=== PATIENT | male | born 1950 | race Caucasian/White ===

== ENCOUNTER 2017-08-24 14:22 | Emergency (ER) | payer MEDICARE, OTHER ==
[~2017-08-24] VITALS: Ht 188 cm; Wt 97.7 kg
[~2017-08-24 14:22] MED LIST: AMBIEN10 MG PO; ASA81 MG; BENTYL20 MG PO; BROMPHED; DIAZEPAM10 MG PO; FLOMAX0.4 MG PO; HYDROCODONE; KLONOPIN2 MG PO; LEVAQUIN; LEVOTHROID100 MC1; LEXAPRO20 MG PO; LIPITOR20 MG PO; LOMOTIL TABLET1 EACH; METFORMIN HCL500 MG PO; MYRBETRIQ25 MG PO; PANTOPRAZOLE SO40 MG PO; PLAVIX75 MG PO; SEROQUEL XR300 MG PO; TRIAZOLAM0.25 MG PO; ULTRAM50 MG PO; XANAX; XANAX2 MG PO; Z.0.AMBIEN10 MG; Z.0.BACTRIM DS TAB1; Z.0.CYMBALTA60 MG; Z.0.FLOMAX0.4 MG; Z.0.GLUCOPHAGE1000 M; Z.0.VYTORIN 10-401 E; [UNRECOGNIZED DRUG - OTHER]
[2017-08-24] MEDS ORDERED: KETOROLAC TROMETHAMINE 30 MG/ML VIAL IV STA (16:28)
[2017-08-24] MEDS ORDERED: TETANUS/DIPHTHERIA TOX ADULT 0.5 ML SYR IM ONE (16:45)
[2017-08-24] MEDS ORDERED: HYDROCODONE/APAP 5MG-325MG TAB PO ONE (17:45)
[2017-08-24 19:41] VITALS: BP 136/72
== END 2017-08-24 17:25 | disposition home or self-care (01) ==
LOC: FSED 14:22
DX: S00.03XA Contusion of scalp, initial encounter (principal); S50.811A Abrasion of right forearm, initial encounter; S01.111A Laceration without foreign body of right eyelid and periocular area, initial encounter; W01.0XXA Fall on same level from slipping, tripping and stumbling without subsequent striking against object, initial encounter; S60.511A Abrasion of right hand, initial encounter; Z23 Encounter for immunization
CPT/HCPCS: 80048; 82553; 84484; 85025; 90471; 90714; 99284

== ENCOUNTER → 2018-04-18 | Emergency (ER) | payer MEDICARE, OTHER ==
[~2018-04-18] VITALS: Ht 188 cm; Wt 90.7 kg
[~2018-04-18] MED LIST changes: +MORPHINE SULFATE 2 MG/ML SYR IV STA; +ONDANSETRON HCL INJ 2 MG/ML VIAL IV STA; +SODIUM CHLORIDE 0.9% 1000ML 1,000 ML IV ONE
[2018-04-18 16:01] LABS: BASOPHILS % 0.5 % (0.0-1.0); EOSINOPHILS % 0.3 % (0.0-6.0); HEMATOCRIT 36.4 % (38.2-49.6); HEMOGLOBIN 11.5 g/dL (14.0-18.0); LYMPHOCYTES % 16.8 % (18.0-39.1); MEAN CORPUSCULAR HEMOGLOBIN 27.8 pg (28-32); MEAN CORPUSCULAR HGB CONC 31.6 g/dL (31-35); MEAN CORPUSCULAR VOLUME 88.1 fL (81-99); MONOCYTES # (AUTO) 0.3 (0.2-0.8); MONOCYTES % 4.3 % (4.4-11.3); NEUTROPHILS # (AUTO) 4.5 (2.1-6.9); NEUTROPHILS % 77.8 % (38.7-80.0); PLATELET COUNT 193 x10e3/uL (140-360); RED BLOOD COUNT 4.13 x10e6/uL (4.3-5.7); RED CELL DISTRIBUTION WIDTH 14.4 % (11.7-14.4)
[2018-04-18 16:04] LABS: INR 0.94; PROTHROMBIN TIME 13.4 seconds (11.9-14.5)
[2018-04-18 16:05] LABS: PARTIAL THROMBOPLASTIN TIME 29.1 seconds (23.8-35.5)
[2018-04-18 16:14] LABS: ALBUMIN 4.4 g/dL (3.5-5.0); ANION GAP 17.2 mmol/L (8-16); CREATININE, SERUM 1.54 mg/dL (0.72-1.25); MAGNESIUM 1.7 MG/DL (1.3-2.1); POTASSIUM 4.2 mmol/L (3.5-5.1)
[2018-04-18 16:22] LABS: CREATINE KINASE MB 6.5 ng/mL (0-5.0)
--- NOTE | 2018-04-18 16:30 | Diagnostic Imaging Report ---
Examination: Single AP view of the chest. COMPARISON: None. INDICATION: Abdominal pain DISCUSSION: Lines/tubes: None. Lungs: The lungs are well inflated and clear. No pneumonia or pulmonary edema. Pleura: No pleural effusion or pneumothorax. Heart and mediastinum: The heart and the mediastinum are unremarkable. Bones and soft tissues: No acute bony abnormalities. IMPRESSION: 1. No acute cardiopulmonary abnormalities. Signed by: Dr. Enzo Ford M.D. on 04/18/2018 4:27 PM
[2018-04-18 16:35] LABS: CLARITY,URINE SL CLOUDY (CLEAR); COLOR,URINE YELLOW (YELLOW)
[2018-04-18 16:36] LABS: BILIRUBIN,URINE NEGATIVE (NEGATIVE); KETONES,URINE TRACE (NEGATIVE); LEUKOCYTE ESTERASE ,URINE NEGATIVE (NEGATIVE); NITRITE,URINE NEGATIVE (NEGATIVE); PROTEIN,URINE DIPSTICK 2+ (NEGATIVE); URINE UROBILINOGEN 0.2 mg/dL (0.2 - 1)
[2018-04-18 16:47] LABS: AMORPHOUS SEDIMENT,URINE MANY (FEW); BACTERIA,URINE MODERATE /HPF
--- NOTE | 2018-04-18 18:24 | Diagnostic Imaging Report ---
Examination: CT head without contrast Clinical Indication: Weakness. Nausea. Vomiting. Technique: Transaxial noncontrast images from the skull base through the vertex were obtained. Sagittal and coronal reformatted images were done. Dose modulation, iterative reconstruction, and/or weight based adjustment of the mA/kV was utilized to reduce the radiation dose to as low as reasonably achievable. Comparison: The images of the prior brain MRI performed October 18, 2013 are inaccessible at this time. Findings: Scalp: No abnormalities. Bones: Intact. No fractures. No blastic or lytic lesions. Brain sulci: Mild volume loss for patient's age. Ventricles: No hydrocephalus. Extra-axial space: No abnormalities. Parenchyma: There are mild confluent areas of low-attenuation within subcortical and periventricular white matter, nonspecific, but could represent microvascular ischemic disease. No masses, hemorrhage, or acute or chronic cortical based vascular insults. Suprasellar region: No abnormalities. Craniocervical junction: The foramen magnum is patent. No Chiari one malformation. Incidental findings: Atherosclerotic calcification of the supraclinoid internal carotid arteries. Impression: 1. No acute intracranial finding. 2. Mild chronic microvascular ischemic change and volume loss. Signed by: Dr. Lindsay Smalls M.D. on 04/18/2018 6:21 PM
--- NOTE | 2018-04-18 18:40 | Diagnostic Imaging Report ---
EXAMINATION: CT of the abdomen and pelvis without contrast. TECHNIQUE: Spiral CT images of the abdomen and pelvis were performed from the lung bases to the lesser trochanters. No intravenous contrast was given per renal stone protocol. Coronal and sagittal reformatted images were obtained. COMPARISON: CT abdomen and pelvis without contrast 12/23/2009 CLINICAL HISTORY:Abdominal pain DISCUSSION: ABSENCE OF INTRAVENOUS CONTRAST DECREASES SENSITIVITY FOR DETECTION OF FOCAL LESIONS AND VASCULAR PATHOLOGY. ABDOMEN/PELVIS: LOWER THORAX: Multiple linear opacities in the left lower lobe consistent with scarring. Atelectatic changes in the posterior left lower lobe. No consolidation. HEPATOBILIARY: No focal hepatic lesions. No intra or extrahepatic biliary ductal dilation. GALLBLADDER: No radio-opaque stones or sludge. No wall thickening. SPLEEN: No splenomegaly. PANCREAS: No focal masses or ductal dilatation. ADRENALS: No adrenal nodules. KIDNEYS/URETERS: 9 mm nonobstructing calculus in the left inferior pole (series 3, image 41). No other renal or any ureteral calculi, hydronephrosis or obstruction. No renal contour abnormalities. Mild nonspecific bilateral perinephric stranding. PELVIC ORGANS/BLADDER: Bladder is unremarkable. No wall thickening or focal lesions. PERITONEUM/RETROPERITONEUM: No free air or fluid. LYMPH NODES: No intra-abdominal,retroperitoneal, pelvic or inguinal lymphadenopathy. VESSELS: Mild atherosclerotic calcification of the distal abdominal aorta and proximal iliac vessels GI TRACT: No bowel dilation or evidence of obstruction. Moderate amount of retained stool predominantly in the ascending, transverse and sigmoid colon,, the latter appears hardened. No pericolonic inflammatory changes. BONES AND SOFT TISSUES: No aggressive lytic lesions. Degenerative disc changes in the lower thoracic and lumbosacral spine IMPRESSION: 1. 9 mm nonobstructing calculus in the left inferior pole. No other renal or ureteral calculi, hydronephrosis or obstruction. 2. Left lower lobe scarring and atelectatic changes. No consolidation. 3. Moderate amount of retained stool in the colon suggesting constipation. No bowel dilation or obstruction. Signed by: Dr. Porfirio Guevara M.D. on 04/18/2018 6:36 PM
[2018-04-18 19:33] VITALS: BP 185/78
== END | disposition home or self-care (01) ==
LOC: ER 14:59
DX: R10.31 Right lower quadrant pain (principal); R10.32 Left lower quadrant pain; K59.00 Constipation, unspecified; I10 Essential (primary) hypertension; E11.9 Type 2 diabetes mellitus without complications; E78.5 Hyperlipidemia, unspecified; F41.9 Anxiety disorder, unspecified
CPT/HCPCS: 36415; 70450; 71045; 74176; 80053; 81001; 82150; 82550; 82553; 83690; 83735; 84484; 85025; 85610; 85730; 93005; 99284; J2270; J2405; J7030

== ENCOUNTER → 2018-12-12 | Outpatient (CLI) | payer MEDICARE ==
[~2018-12-12] MED LIST changes: -MORPHINE SULFATE 2 MG/ML SYR IV STA; -ONDANSETRON HCL INJ 2 MG/ML VIAL IV STA; -SODIUM CHLORIDE 0.9% 1000ML 1,000 ML IV ONE
--- NOTE | 2018-12-12 12:22 | Diagnostic Imaging Report ---
MRI of the right foot without contrast. History: Pain and swelling. Ulcer at the bottom of the foot. Redness.. Prior amputation Technique: Multiplanar multisequence MRI of the foot without contrast Comparison: MRI March 13, 2008. MRI January 24, 2016 Findings: Abnormal skin ulceration, skin thickening and soft tissue edema at the plantar aspect of the foot at the level of the distal first/second metatarsal stump. This is best seen on sagittal image 11 through 16. No underlying well-formed drainable fluid collection/abscess is seen. No focal bone marrow edema or cortical destruction is seen to suggest osteomyelitis. The findings are most likely due to cellulitis. Scattered degenerative changes are seen with regions of bone marrow edema most pronounced in the cuboid bone likely stress related. No acute fracture or dislocation. Postsurgical change consistent with prior amputation of the first through fifth toes at the level of the mid/distal metatarsals. No ligamentous or tendon tear is seen. The visualized neurovascular bundles are intact. Diffuse muscle atrophy. Impression: Abnormal skin ulceration, skin thickening and soft tissue edema at the plantar aspect of the foot at the level of the distal first/second metatarsal stump. No underlying well-formed drainable fluid collection/abscess is seen. No focal bone marrow edema or cortical destruction is seen to suggest osteomyelitis. The findings are most likely due to cellulitis. Signed by: Dr. Musa Galdamez M.D. on 12/12/2018 12:18 PM
== END ==
LOC: MRI 10:40
PROVIDERS: ATTEND Podiatrist Foot & Ankle Surgery
DX: M86.071 Acute hematogenous osteomyelitis, right ankle and foot (principal); M25.471 Effusion, right ankle

== ENCOUNTER 2019-02-13 07:26 | Emergency (ER) | payer MEDICARE, OTHER ==
[~2019-02-13] VITALS: Ht 188 cm; Wt 90.7 kg
--- OUTSIDE RECORDS SUMMARY | 2019-02-13 07:31 | XMS REPORT | Continuity of Care Document ---
Author Author [email or web address] Organization [email or web address] Address Unknown Phone Unavailable Care Team Providers Care Accounting Associate Name Role Phone [employer] Information [employer] Unavailable Unavailable Problems Problem Status Onset Date Classification Date Reported Comments Source Venous insufficiency Active Problem 09/03/2017 Danya Hall Shortness of breath Active Problem 09/03/2017 Danya Hall Leg swelling Active Problem 09/03/2017 Danya Hall Atherosclerosis of [place] coronary artery of [place] heart with angina pectoris Active Problem 09/03/2017 Danya Hall Atherosclerosis of [place] arteries of left leg with ulceration of other part of foot Active Problem 09/03/2017 Danya Hall Varicose veins of bilateral lower extremities with other complications Active Problem 09/03/2017 Danay Hall Atherosclerosis of [place] artery of both lower extremities with intermittent claudication Active Problem 09/03/2017 Danya Hall Abnormal electrocardiogram Active Problem 09/03/2017 Danya Hall Stented coronary artery Active Problem 09/03/2017 Danya Hall Atherosclerosis of [place] arteries of right leg with ulceration of other part of foot Active Problem 09/03/2017 Danya Hall Hypercholesteremia Active Problem 09/03/2017 Danya Hall PAD Active Problem 09/03/2017 Danya Hall Generalized OA Active Problem 09/03/2017 Danya Hall Varicose veins of leg with complications Active Problem 09/03/2017 Danya Hall Type 2 diabetes mellitus with complication Active Problem 09/03/2017 Danya Hall CAD Active Problem 09/03/2017 Danya Hall Venous insufficiency Active Problem 05/16/2014 Danya Hall Diabetes mellitus with complication Active Problem 05/16/2014 Danya Hall Type II diabetes mellitus with neurological manifestations Active Problem 05/16/2014 Danya Hall Generalized osteoarthrosis Active Problem 05/16/2014 Danya Hall Chest Pain Active Problem 05/16/2014 Danya Hall Shortness of breath Active Problem 05/16/2014 Danya Hall CAD Active Problem 05/16/2014 Danya Hall Hypercholesterolemia Active Problem 05/16/2014 Danya Hall Tricuspid valve disorders, specified as nonrheumatic Active Problem 05/16/2014 Danya Hall Pre-operative cardiac clearance Active Problem 05/16/2014 Danya Hall Leg swelling Active Problem 05/16/2014 Danya Hall Hypercholesteremia Active Problem 03/21/2016 Danya Hall Medications Medication Details Route Status Patient Instructions Ordering Provider Order Date Source Triazolam 1 tablet at bedtime as needed Orally Active 0.25 MG Orally Once a day Isabel Hall Tamsulosin HCl Unknown Orally Active 0.4 MG Orally Riteshchio [facility] Lipitor 1 tablet Orally Active 20 MG Orally Once a day Riteshchio Hall Metformin HCl 1 tablet with meals Orally Active 500 MG Orally Twice a day Isabel Hall Diazepam 1 tablet as needed Orally Active 10 MG Orally Twice a day Rites[facility]chio [facility] Protonix 1 tablet Orally Active 40 MG Orally Once a day Riteshchio Hall Clopidogrel Bisulfate 1 tablet Orally Active 75 mg Orally Once a day Riteshchio Hall Myrbetriq 1 tablet Orally Active 50 MG Orally Once a day Riteshchio Hall Seroquel XR 2 tablet Orally Active 300 MG Orally Once A day [place] [facility] Lexapro 1 tablet Orally Active 20 mg Orally Once a day Riteshchio [facility] Allergies, Adverse Reactions, Alerts Substance Category Reaction Severity Reaction type Status Date Reported Comments Source Lasix Adverse Reaction Diarrhea, Nausea Adverse Reaction Active 02/04/2016 Danya Hall Immunizations No Data Provided for This Section Results No Data Provided for This Section Pathology Reports No Data Provided for This Section Diagnostic Reports No Data Provided for This Section Consultation Notes No Data Provided for This Section Discharge Summaries No Data Provided for This Section History and Physicals No Data Provided for This Section Vital Signs Vital Sign Value Date Comments Source Weight 247 02/04/2016 Danya Hall Height 74 02/04/2016 Danya Hall Temperature Oral (F) 98.2 F 02/04/2016 Danya Hall Heart Rate 68 02/04/2016 Danya Hall Diastolic (mm Hg) 60 02/04/2016 Danya Hall Systolic (mm Hg) 144 02/04/2016 Danya Hall Encounters Location Location Details Encounter Type Encounter Number Reason For Visit Attending Provider ADM Date DC Date Status Source MD KRISTEN Lemus Unknown [id number] 01/31/2014 01/31/2014 MD KRISTEN Tristan Unknown [id number] 03/29/2014 03/29/2014 MD KRISTEN Tristan Unknown [id number] 04/16/2014 04/16/2014 MD KRISTEN Tristan Unknown [id number] 05/04/2014 05/04/2014 MD KRISTEN Tristan Unknown [id number] 05/04/2014 05/04/2014 MD KRISTEN Tristan Unknown [id number] 08/21/2014 08/21/2014 Danya Hall MD PA Leg Swelling [id number] 08/27/2014 08/27/2014 Danya Hall MD PA Results [id number] 11/13/2014 11/13/2014 Danya Hall MD PA cardiac clearance [id number] 02/04/2016 02/04/2016 Danya Hall Procedures No Data Provided for This Section Assessment and Plan No Data Provided for This Section Plan of Care No Data Provided for This Section Social History Social History Date Source Social History ElementQualifiersDate Reported Smoking . February 04, 2016 Alcohol Use No. February 04, 2016 Alcohol Screening: Yes. Did you have a drink containing alcohol in the past year?: No, Points: 0, Interpretation: Negative February 04, 2016 Tobacco Use: . February 04, 2016 Marital Status: . February 04, 2016 Do you drink alcohol? No. February 04, 2016 Occupation: . Retired [employer] sales February 04, 2016 02/04/2016 Danya Hall Family History No Data Provided for This Section Advance Directives No Data Provided for This Section Functional Status No Data Provided for This Section
--- OUTSIDE RECORDS SUMMARY | 2019-02-13 07:31 | XMS REPORT ---
Author Author [facility] Address Unknown Phone Unavailable Care Team Providers Care Supervisor Photostat Name Role Phone Madelaine MENJIVAR Unavailable Unavailable Sin SMITH Unavailable Unavailable Problems This patient has no known problems. Allergies, Adverse Reactions, Alerts This patient has no known allergies or adverse reactions. Medications This patient has no known medications. Results Test Description Test Time Test Comments Text Results Atomic Results Result Comments MRI FOOT RIGHT WO 2018-12-12 12:12:00 [place] [address] Patient Name: OTIS RUBI MR #: [id number] : 1950 Age/Sex: 68/M Req #: [id number] Adm Physician: Ordered by: Madelaine MENJIVAR DPM Report #: [id number] Location: MRI Room/Bed: Procedure: [id number] MRI/MRI FOOT RIGHT WO Exam Date: Exam Time: REPORT STATUS: Signed MRI of the right foot without contrast. History: Pain and swe lling. Ulcer at the bottom of the foot. Redness.. Prior amputation Technique: Multiplanar multisequence MRI of the foot without contrast Comparison: MRI March 13, 2008. MRI January 24, 2016 Findings: Abnormal skin ulceration, skin thickening and soft tissue edema at the plantar aspect of the foot at the level of the distal first/second metatarsal stump. This is best seen on sagittal image 11 through 16. No underlying well-formed drainable fluid collection/abscess is seen. No focal bone marrow edema or cortical destruction is seen to suggest osteomyelitis. The findings are most likely due to cellulitis. Scattered degenerative changes are seen with regions of bone marrow edema most pronounced in the cuboid bone likely stress related. No acute fracture or dislocation. Postsurgical change consistent with prior amputation of the first through fifth toes at the level of the mid/distal metatarsals. No ligamentous or tendon tear is seen. The visualized neurovascular bundles are intact. Diffuse muscle atrophy. Impression: Abnormal skin ulceration, skin thickening and soft tissue edema at the plantar aspect of the foot at the level of the distal first/second metatarsal stump. No underlying well-formed drainable fluid collection/abscess is seen. No focal bone marrow edema or cortical destruction is seen to suggest osteomyelitis. The findings are most likely due to cellulitis. Signed by: Dr. Musa Galdamez M.D. on 12/12/2018 12:18 PM Dictated By: MUSA GALDAMEZ MD, MD 1218 Transcribed By: DANIEL on 12/12/18 1218 COPY TO: Madelaine MENJIVAR DPM CT ABDOMEN/PELVIS WO 2018-04-18 18:30:00 [place] [address] Patient Name: OTIS RUBI MR #: [id number] : 1950 Age/Sex: 68/M Req #: [id number] Adm Physician: Ordered by: ZAINA SMITH MD Report #: [id number] Location: ER Room/Bed: Procedure: CT/CT ABDOMEN/PELVIS WO Exam Date: 04/18/18 Exam Time: 1700 REPORT STATUS: Signed EXAMINATION: CT of the abdomen and pelvis without contrast. TECHNIQUE: Spiral CT images of the abdomen and pelvis were performed from the lung bases to the lesser trochanters. No intravenous contrast was given per renal stone protocol. Coronal and sagittal reformatted images were obtained. COMPARISON: CT abdomen and pelvis without contrast 12/23/2009 CLINICAL HISTORY:Abdominal pain DISCUSSION: ABSENCE OF INTRAVENOUS CONTRAST DECREASES SENSITIVITY FOR DETECTION OF FOCAL LESIONS AND VASCULAR PATHOLOGY. ABDOMEN/PELVIS: LOWER THORAX: Multiple linear opacities in the left lower lobe consistent with scarring. Atelectatic changes in the posterior left lower lobe. No consolidation. HEPATOBILIARY: No focal hepatic lesions. No intra or extrahepatic biliary ductal dilation. GALLBLADDER: No radio- opaque stones or sludge. No wall thickening. SPLEEN: No splenomegaly. PANCREAS: No focal masses or ductal dilatation. ADRENALS: No adrenal nodules. KIDNEYS/URETERS: 9 mm nonobstructing calculus in the left inferior pole (series 3, image 41). No other renal or any ureteral calculi, hydronephrosis or obstruction. No renal contour abnormalities. Mild nonspecific bilateral perinephric stranding. PELVIC ORGANS/BLADDER: Bladder is unremarkable. No wall thickening or focal lesions. PERITONEUM/RETROPERITONEUM: No free air or fluid. LYMPH NODES: No intra- abdominal,retroperitoneal, pelvic or inguinal lymphadenopathy. VESSELS: Mild atherosclerotic calcification of the distal abdominal aorta and proximal iliac vessels GI TRACT: No bowel dilation or evidence of obstruction. Moderate amount of retained stool predominantly in the ascending, transverse and sigmoid colon,, the latter appears hardened. No pericolonic inflammatory changes. BONES AND SOFT TISSUES: No aggressive lytic lesions. Degenerative disc changes in the lower thoracic and lumbosacral spine IMPRESSION: 1. 9 mm nonobstructing calculus in the left inferior pole. No other renal or ureteral calculi, hydronephrosis or obstruction. 2. Left lower lobe scarring and atelectatic changes. No consolidation. 3. Moderate amount of retained stool in the colon suggesting constipation. No bowel dilation or obstruction. Signed by: Dr. Anisa Guevara M.D. on 04/18/2018 6:36 PM Dictated By: ANISA GUEVARA MD 3024 Transcribed By: DANIEL on 04/18/18 1836 COPY TO: ZAINA SMITH MD CT BRAIN WO 2018-04-18 18:19:00 [place] [address] Patient Name: OTIS RUBI MR #: [id number] : 1950 Age/Sex: 68/M Req #: [id number] Adm Physician: Ordered by: MARVEL BAZZI [employer] Report #: [id number] Location: ER Room/Bed: Procedure: [id number] CT/CT BRAIN WO Exam Date: 04/18/18 Exam Time: 1700 REPORT STATUS: Signed Examination: CT head without contrast Clinical Indication: Weakness. Nausea. Vomiting. Technique: Transaxial noncontrast images from the skull base through the vertex were obtained. Sagittal and coronal reformatted images were done. Dose modulation, iterative reconstruction, and/or weight based adjustment of the mA/kV was utilized to reduce the radiation dose to as low as reasonably achievable. Comparison: The images of the prior brain MRI performed October 18, 2013 are inaccessible at this time. Findings: Scalp: No abnormalities. Bones: Intact. No fractures. No blastic or lytic lesions. Brain sulci: Mild volume loss for patient's age. Ventricles: No hydrocephalus. Extra-axial space: No abnormalities. Parenchyma: There are mild confluent areas of low-attenuation within subcortical and per iventricular white matter, nonspecific, but could represent microvascular ischemic disease. No masses, hemorrhage, or acute or chronic cortical based vascular insults. Suprasellar region: No abnormalities. Craniocervical junction: The foramen magnum is patent. No Chiari one malformation. Incidental findings: Atherosclerotic calcification of the supraclinoid internal carotid arteries. Impression: 1. No acute intracranial finding. 2. Mild chronic microvascular ischemic change and volume loss. Signed by: Dr. Lindsay Smalls M.D. on 04/18/2018 6:21 PM Dictated By: LINDSAY CASTILLO MD 20 Transcribed By: DANIEL on 04/18/181820 COPY TO: MARVEL BAZZI NP CHEST SINGLE (PORTABLE) 2018-04-18 16:25:00 [place] [address] Patient Name: OTIS RUBI MR #: [id number] : 1950 Age/Sex: 68/M Req #: [id number] Adm Physician: Ordered by: MARVEL BAZZI NP Report #: [id number] Location: ER Room/Bed: Procedure: [id number] DX/CHEST SINGLE (PORTABLE) Exam Date: 04/18/18 Exam Time: 1605 REPORT STATUS: Signed Examination: Single AP view of the chest. COMPARISON: None. INDICATION: Abdominal pain DISCUSSION: Lines/tubes: None. Lungs: The lungs are well inflated and clear. No pneumonia or pulmonary edema. Pleura: No pleural effusion or pneumothorax. Heart and mediastinum: The heart and the mediastinum are unremarkable. Bones and soft tissues: No acute bony abnormalities. IMPRESSION: 1. No acute cardiopulmonary abnormalities. Signed by: Dr. Cl Kelley M.D. on 04/18/2018 4:27 PM Dictated By: CL KELLEY MD 26 Transcribed By: DANIEL on 04/18/181626 COPY TO: MARVEL BAZZI NP
--- NOTE | 2019-02-13 07:45 | NUR ---
PATIENT SEEN BY DR. ROBERTSON IN TRIAGE
[2019-02-13] MEDS ORDERED: HYDROCODONE/APAP 7.5MG-325MG 1 EA TAB PO ONE (08:00)
--- NOTE | 2019-02-13 09:00 | Diagnostic Imaging Report ---
EXAMINATION: RIBS UNILAT W/CXR INDICATION: Fall COMPARISON: Chest radiograph of 04/18/2018 FINDINGS: TUBES and LINES: None. LUNGS: The lungs are well-inflated. Linear opacities at the left lung base on a background of increased airspace opacification. PLEURA: Small left pleural effusion. No pneumothorax. HEART AND MEDIASTINUM: The cardiomediastinal silhouette is normal in size and contour. BONES AND SOFT TISSUES: There are acute mildly displaced fractures of the right posterior lateral sixth and seventh ribs. Old healed fracture deformity of the right posterior ninth rib. There is also question of mildly displaced fracture of the anterolateral left seventh rib. UPPER ABDOMEN: No free air under the diaphragm. IMPRESSION: Acute mildly displaced fractures of the right posterior lateral sixth and seventh ribs. Likely fracture of the left anterolateral seventh rib with associated small left effusion and subsegmental atelectasis at the left lung base. RECOMMENDATION: Chest CT for evaluation for possible hemothorax and underlying lung contusion at the left lung base. Signed by: Victor M Garcia MD on 02/13/2019 8:57 AM
--- NOTE | 2019-02-13 09:45 | NUR ---
straight cath inserted for ua per md orders via aseptic technique; pt has approx 100 cc urine output; per pt he straight cath himself at home
[2019-02-13] MEDS ORDERED: ONDANSETRON HCL INJ 2MG/ML 2ML 2 MG/ML VIAL IV STA (09:48)
[2019-02-13] MEDS ORDERED: MORPHINE SULFATE 5 MG/ML VIAL IV ONE (10:00)
[2019-02-13 10:04] LABS: BASOPHILS # (AUTO) 0.1 (0.0-0.1); BASOPHILS % 1.1 % (0.0-1.0); BILIRUBIN,URINE NEGATIVE (NEGATIVE); CLARITY,URINE SL CLOUDY (CLEAR); COLOR,URINE YELLOW (YELLOW); EOSINOPHILS # (AUTO) 0.1 (0.0-0.4); EOSINOPHILS % 1.1 % (0.0-6.0); HEMATOCRIT 35.9 % (38.2-49.6); HEMOGLOBIN 11.1 g/dL (14.0-18.0); KETONES,URINE NEGATIVE (NEGATIVE); LEUKOCYTE ESTERASE ,URINE NEGATIVE (NEGATIVE); LYMPHOCYTES # (AUTO) 1.3 (1.0-3.2); MEAN CORPUSCULAR HEMOGLOBIN 27.1 pg (28-32); MEAN CORPUSCULAR HGB CONC 30.9 g/dL (31-35); MEAN CORPUSCULAR VOLUME 87.6 fL (81-99); MONOCYTES # (AUTO) 0.3 (0.2-0.8); MONOCYTES % 4.9 % (4.4-11.3); NEUTROPHILS % 69.7 % (38.7-80.0); NITRITE,URINE NEGATIVE (NEGATIVE); PLATELET COUNT 260 x10e3/uL (140-360); PROTEIN,URINE DIPSTICK 1+ (NEGATIVE); RED CELL DISTRIBUTION WIDTH 15.3 % (11.7-14.4); URINE UROBILINOGEN 0.2 mg/dL (0.2 - 1)
[2019-02-13] MEDS ORDERED: MORPHINE SULFATE INJ 4 MG/ML INJ 1ML IV ONE (10:15)
[2019-02-13 10:16] LABS: INR 0.97; PARTIAL THROMBOPLASTIN TIME 28.2 seconds (23.8-35.5); PROTHROMBIN TIME 13.4 seconds (11.9-14.5)
[2019-02-13 10:23] LABS: RBC,URINE 0-5 /HPF (0-5); WBC,URINE (MAN) 0-5 /HPF (0-5)
[2019-02-13 10:24] LABS: BACTERIA,URINE FEW /HPF; EPITHELIAL CELLS,URINE FEW /LPF
[2019-02-13 10:35] LABS: ALBUMIN 3.6 g/dL (3.5-5.0); ALBUMIN/GLOBULIN RATIO 0.8 (0.8-2.0); ANION GAP 13.8 mmol/L (8-16); CALCIUM 9.5 mg/dL (8.4-10.2); CREATININE, SERUM 1.3 mg/dL (0.72-1.25); POTASSIUM 4.8 mmol/L (3.5-5.1)
[2019-02-13 10:41] LABS: CREATINE KINASE MB 0.9 ng/mL (0-5.0)
[2019-02-13] MEDS ORDERED: SODIUM CHLORIDE 0.9% 500ML 500 ML IV ONE (10:45)
--- NOTE | 2019-02-13 12:12 | Diagnostic Imaging Report ---
EXAM: CT Chest WITH intravenous contrast 02/13/2019 9:07 AM INDICATION: Trauma COMPARISON: Chest and rib radiographs of 02/13/2019 TECHNIQUE: Chest was scanned utilizing a multidetector helical scanner from the lung apex through the level of the adrenal glands after administration of IV contrast. Coronal and sagittal reformations were obtained. Routine protocol was performed. IV CONTRAST: 100mL Isovue 370 RADIATION DOSE: Total DLP: 701.05 mGy*cm. Dose modulation, iterative reconstruction, and/or weight based adjustment of the mA/kV was utilized to reduce the radiation dose to as low as reasonably achievable. COMPLICATIONS: None FINDINGS: LINES/ TUBES: None. LUNGS AND AIRWAYS: The central airways are patent. No focal consolidation or pulmonary edema. No evidence of pulmonary contusion. Unchanged linear opacities at the left lower lobe consistent with scarring and subsegmental atelectasis. PLEURA: No pleural effusion. No pneumothorax. HEART AND MEDIASTINUM: The thyroid gland is incompletely visualized. The visualized portions appear unremarkable. No supraclavicular, mediastinal, hilar, axillary, subpectoral, or internal mammary lymphadenopathy. The heart is not enlarged. Thereafter cirrhotic calcifications of the coronary arteries. This study is not optimized for assessment for pulmonary emboli, however there are no filling defects in the main or lobar pulmonary arteries bilaterally. No pericardial effusion. UPPER ABDOMEN: Please see the separate dictation for the concurrently performed abdomen and pelvis CT for a detailed discussion of intra-abdominal findings. BONES: Again seen are mildly displaced fractures of the posterior lateral right sixth and seventh ribs. No underlying hematoma. No associated pneumothorax. No other fractures identified. Moderate degenerative changes of the visualized spine. No suspicious lytic or blastic lesions. SOFT TISSUES: Unremarkable. IMPRESSION: Redemonstration of mildly displaced posterolateral right sixth and seventh ribs with no underlying hematoma, pneumothorax, or pulmonary contusion. No other fractures identified. No focal consolidation. Unchanged scarring and subsegmental atelectasis at the left lower lobe. Signed by: Victor M Garcia MD on 02/13/2019 12:08 PM
--- NOTE | 2019-02-13 12:12 | Diagnostic Imaging Report ---
History: Fall 5 days ago, head and neck pain Comparison studies:None Technique: Axial images were obtained from the brain and cervical spine. Coronal and sagittal images reconstructed from the axial data. Intravenous contrast: None Dose modulation, iterative reconstruction, and/or weight based adjustment of the mA/kV was utilized to reduce the radiation dose to as low as reasonably achievable. Findings: Head CT: Scalp/skull: No abnormalities. No fractures, blastic or lytic lesions. Brain sulci: Mildly prominent. Ventricles: Normal in size and configuration. No hydrocephalus. Extra-axial spaces: No masses. No fluid collections. Parenchyma: Scattered hypodensities of the periventricular and deep white matter, nonspecific and most commonly seen with mild chronic microvascular ischemic changes.. No masses, hemorrhage, acute or chronic cortical vascular insults. Sellar/suprasellar region: No abnormalities. Craniocervical junction: Patent foramen magnum. No Chiari one malformation. Atherosclerotic calcifications of the carotid siphons. Cervical spine CT: Fractures: None. Soft tissues: No gross abnormalities. Atlantoaxial articulation: Degenerative changes without acute abnormality. Alignment: Normal lordosis. No scoliosis. Cervicomedullary junction: No abnormalities. Patent foramen magnum. Vertebrae: No infection or neoplasm. Degenerative changes: Posterior disc osteophyte complex at C3-4 results in moderate canal stenosis and moderate bilateral foraminal narrowing. Posterior disc osteophyte complex at C4-5 results in moderate central canal stenosis Incidental findings: Atherosclerotic calcifications of the left carotid bulb. Impression: Head CT: 1. No acute abnormality. Cervical spine CT: 1. No acute abnormalities. 2. Cannot exclude ligament, spinal cord and or vascular abnormalities on the basis of this examination. Signed by: DR John Sanchez M.D. on 02/13/2019 12:09 PM
--- NOTE | 2019-02-13 12:23 | Diagnostic Imaging Report ---
EXAM: CT Abdomen WITH intravenous contrast INDICATION: Trauma COMPARISON: None. TECHNIQUE: Abdomen was scanned utilizing a multidetector helical scanner from the lung base to the iliac crest after administration of IV contrast. Coronal and sagittal reformations were obtained. Routine protocol was performed. Scan was performed when during portal venous phase. IV CONTRAST: 100mL of Isovue 370 ORAL CONTRAST: None COMPLICATIONS: None RADIATION DOSE: Total DLP: 701.05 mGy*cm Dose modulation, iterative reconstruction, and/or weight based adjustment of the mA/kV was utilized to reduce the radiation dose to as low as reasonably achievable. FINDINGS: LOWER THORAX: Please refer to report from concurrently performed chest CT for intrathoracic findings HEPATOBILIARY: No focal hepatic lesions. No biliary ductal dilatation. The gallbladder appears unremarkable. SPLEEN: No splenomegaly. PANCREAS: No focal masses or ductal dilatation. ADRENALS: No adrenal nodules. KIDNEYS/URETERS: No hydronephrosis, stones, or solid mass lesions. PERITONEUM / RETROPERITONEUM: No free air or fluid. LYMPH NODES: No lymphadenopathy. VESSELS: Mild scattered atherosclerotic calcifications of the abdominal aorta and major branches. GI TRACT: No distention or wall thickening. The transverse colon contains a large burden of stool. BONES AND SOFT TISSUES: Mildly displaced right sixth and seventh rib fractures as reported in prior chest radiograph and concurrently reported chest CT. No acute osseous injury in the abdomen. IMPRESSION: No acute trauma in the abdomen. Signed by: Victor M Garcia MD on 02/13/2019 12:20 PM
[2019-02-13 12:42] VITALS: BP 167/67
[2019-02-13] MEDS ORDERED: SODIUM CHLORIDE 0.9% 50ML 50 ML ONE ×2 (14:40)
[2019-02-13] MEDS ORDERED: IOPAMIDOL 370 MG/ML 200 ML INFUS..BTL INJ ONE (14:40)
== END 2019-02-13 12:54 | disposition home or self-care (01) ==
LOC: ER 07:26
DX: S22.41XA Multiple fractures of ribs, right side, initial encounter for closed fracture (principal); W01.0XXA Fall on same level from slipping, tripping and stumbling without subsequent striking against object, initial encounter; E11.9 Type 2 diabetes mellitus without complications; I25.10 Atherosclerotic heart disease of native coronary artery without angina pectoris; E78.5 Hyperlipidemia, unspecified
CPT/HCPCS: 36415; 70450; 71101; 71260; 72125; 74160; 80053; 81001; 82550; 82553; 82948; 83690; 84484; 85025; 85610; 85730; 99284; J2270; J2405; J7040; Q9967

== ENCOUNTER 2019-04-13 22:39 | Emergency (ER) | payer MEDICARE, OTHER ==
[~2019-04-13] VITALS: Ht 188 cm; Wt 90.7 kg
[2019-04-13] MEDS ORDERED: LIDOCAINE HCL 1% LOCAL INJ 20 ML VIAL ONE (23:02)
[2019-04-14 00:37] VITALS: BP 122/66
[2019-04-14] MEDS ORDERED: BACITRACIN ZINC 0.9GM TP ONE (00:53)
--- OUTSIDE RECORDS SUMMARY | 2019-04-14 06:08 | XMS REPORT | Continuity of Care Document ---
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 Storen[employer] Information [employer] Unavailable Unavailable Problems Problem Status Onset Date Classification Date Reported Comments Source Venous insufficiency Active Problem 09/03/2017 Danya Hall Shortness of breath Active Problem 09/03/2017 Danya Hall Leg swelling Active Problem 09/03/2017 Danya Hall Atherosclerosis of [place] coronary artery of [place] heart with angina pectoris Active Problem 09/03/2017 Danya Hall Atherosclerosis of [place] arteries of left leg with ulceration of other part of foot Active Problem 09/03/2017 Danya Hall Varicose veins of bilateral lower extremities with other complications Active Problem 09/03/2017 Danya Hall Atherosclerosis of [place] artery of both lower extremities with intermittent claudication Active Problem 09/03/2017 Danya Hall Abnormal electrocardiogram Active Problem 09/03/2017 Danya Hall Stented coronary artery Active Problem 09/03/2017 Danya Hall Atherosclerosis of [place] arteries of right leg with ulceration of [...] 300 MG Orally Once A day [facility] Luis Hall Lexapro 1 tablet Orally [...] Date Status Source MD KRISTEN Lemus Unknown [id number] 01/31/2014 01/31/2014 MD KRISTEN Tristan Unknown [id number] 03/29/2014 03/29/2014 MD KRISTEN Tristan Unknown [id number] 04/16/2014 04/16/2014 MD KRISTEN Tristan Unknown [id number] 05/04/2014 05/04/2014 MD KRISTEN Tristan Unknown [id number] 05/04/2014 05/04/2014 MD KRISTEN Tristan Unknown [id number] 08/21/2014 08/21/2014 Danya Hall MD PA Leg Swelling [id number] 08/27/2014 08/27/2014 Danya Hall MD PA Results [id number] 11/13/2014 11/13/2014 Danya Hall MD PA cardiac clearance [id number] 02/04/2016 02/04/2016 Danya Hall Procedures No Data [...]
== END 2019-04-14 00:58 | disposition home or self-care (01) ==
LOC: ER 22:39
DX: S81.812A Laceration without foreign body, left lower leg, initial encounter (principal); W22.03XA Walked into furniture, initial encounter; Y92.003 Bedroom of unspecified non-institutional (private) residence as the place of occurrence of the external cause; E11.9 Type 2 diabetes mellitus without complications; E78.5 Hyperlipidemia, unspecified; I25.10 Atherosclerotic heart disease of native coronary artery without angina pectoris; F41.9 Anxiety disorder, unspecified; F32.9 Major depressive disorder, single episode, unspecified
CPT/HCPCS: 12002; 99283; J2001

== ENCOUNTER 2019-07-05 03:26 | Emergency (ER) | payer MEDICARE, OTHER ==
[~2019-07-05] VITALS: Ht 188 cm; Wt 90.7 kg
[2019-07-05] MEDS ORDERED: LIDOCAINE 1% W/EPINEPHRINE 20 ML VIAL INJ ONE (03:45)
[2019-07-05] MEDS ORDERED: TETANUS/DIPHTHERIA TOX ADULT 0.5 ML SYR IM ONE (03:45)
[2019-07-05] MEDS ORDERED: BACITRACIN ZINC 0.9GM TP ONE (05:15)
--- NOTE | 2019-07-05 05:51 | Diagnostic Imaging Report ---
EXAMINATION: Head CT without contrast. HISTORY:Fall. COMPARISON:CT brain from 02/13/2019. TECHNIQUE: Multidetector axial images were obtained from the foramen magnum to the vertex without contrast. The images were reconstructed using brain and bone algorithms. Thin section brain images were reformatted into coronal and sagittal planes. Dose modulation, iterative reconstruction, and/or weight based adjustment of the mA/kV was utilized to reduce the radiation dose to as low as reasonably achievable. Intravenous contrast: None IMAGE QUALITY: Acceptable. FINDINGS: Skull/scalp: Mild left frontal scalp soft tissue edema/hematoma. No soft tissue emphysema or radiopaque foreign body. No acute depressed or displaced calvarial fracture. Parenchyma: Nonspecific bilateral frontoparietal patchy white matter hypodensity are likely related to small vessel ischemic changes. No acute hemorrhage, mass or acute major vascular territorial infarct. Arteries: No density suggestive of thrombosis. Dural sinuses: No abnormal density suggestive of thrombosis. Ventricles: Mild compensated dilatation due to volume loss. No acute hydrocephalus. Extra-axial spaces: No abnormal density. Brain volume: Mild generalized age-related cerebral volume loss. Craniocervical junction: No mass, Chiari malformation, or basilar invagination. Sella: No mass. Paranasal/mastoid sinuses: Imaged portions unremarkable. IMPRESSION: 1. Mild left frontal scalp soft tissue edema. No acute fracture. 2. No acute posttraumatic intracranial abnormality. Chronic findings: 1. Mild supratentorial white matter microvascular ischemic changes. 2. Mild generalized cerebral volume loss. Signed by: Dr. Mirella Rincon M.D. on 07/05/2019 5:48 AM
--- NOTE | 2019-07-05 05:55 | Diagnostic Imaging Report ---
X-ray right shoulder 3 views HISTORY: Pain. COMPARISON: None available. FINDINGS: Bones: No acute displaced fractures. Healing minimally displaced right mid rib fractures. Osseous alignment is within normal limits. Reactive changes in the greater tuberosity. Joints: Degenerative changes in the acromioclavicular and glenohumeral joint. Degenerative changes in the spine. Soft tissues: The soft tissues appear unremarkable. IMPRESSION: No acute radiographic abnormality. Degenerative changes in the shoulder. Signed by: Isidoro Wade DO on 07/05/2019 5:52 AM
--- NOTE | 2019-07-05 05:59 | Diagnostic Imaging Report ---
History: Fall. Comparison studies: CT cervical spine from 02/13/2019. Technique: Axial images were obtained through the cervical region.. Coronal and sagittal images reconstructed from the axial data. Dose modulation, iterative reconstruction, and/or weight based adjustment of the mA/kV was utilized to reduce the radiation dose to as low as reasonably achievable. Intravenous contrast: None Findings: Fractures: None. Soft tissue injuries: None. Atlantoaxial articulation: Intact. Alignment: Normal lordosis. No scoliosis. Cervicomedullary junction: No abnormalities. The foramen magnum is patent. Soft tissues: No abnormalities. Vertebrae: No fractures, infection or neoplasm. Degenerative changes: Moderate degenerative changes in the anterior atlantodental joint. 4.6 mm lytic lesion within the dens surrounded by sclerosis possibly related to degenerative changes. C2-C3: Mild right foraminal stenosis due to facet and uncovertebral arthrosis. C3-C4: Posterior disc osteophyte complex results in moderate canal stenosis. Mild right and moderate left foraminal stenosis due to facet and uncovertebral arthrosis. C4-C5: Posterior disc osteophyte complex results in mild canal stenosis. Mild bilateral foraminal stenosis due to facet and uncovertebral arthrosis. C5-C6: Moderate right foraminal stenosis due to facet and uncovertebral arthrosis. IMPRESSION: 1. No acute cervical spine fracture or dislocation. 2. Ligament, spinal cord and or vascular abnormalities cannot be excluded on the basis of this examination. 3. Cervical spondylosis as detailed above. Signed by: Dr. Mirella Rincon M.D. on 07/05/2019 5:56 AM
[2019-07-05] MEDS ORDERED: TRAMADOL HCL 50 MG TAB PO ONE (06:00)
--- NOTE | 2019-07-05 06:04 | Diagnostic Imaging Report ---
History:Fall. Comparison studies: None Technique: Axial images were obtained through the maxillofacial region. Coronal and sagittal images reconstructed from the axial data. Dose modulation, iterative reconstruction, and/or weight based adjustment of the mA/kV was utilized to reduce the radiation dose to as low as reasonably achievable. Intravenous contrast: None Findings: Soft tissues: Mild left frontal scalp soft tissue edema. Mild perinasal soft tissue edema/hematoma. Mild premaxillary soft tissue edema and minimal emphysema. No radiopaque foreign body. Bones: Acute displaced fracture of bilateral nasal bones and frontal processes of the maxilla. Orbits: Globes: Intact Extra or intraconal abnormalities: None. Paranasal sinuses: Mild mucosal thickening in bilateral ethmoid sinuses. IMPRESSION: 1. Mild perinasal and premaxillary soft tissue edema/hematoma. 2. Acute displaced fracture of bilateral nasal bones and frontal processes of the maxilla. Signed by: Dr. Mirella Rincon M.D. on 07/05/2019 6:00 AM
[2019-07-05] MEDS ORDERED: MORPHINE SULFATE INJ 4 MG/ML INJ 1ML IM STA (06:13)
[2019-07-05] MEDS ORDERED: ONDANSETRON HCL 4 MG ORAL DISINTEGRATING TAB PO ONE (06:15)
--- NOTE | 2019-07-05 06:35 | NUR ---
PATIENT IRRATE WITH DR SPAULDING DUE TO NOT BEING ABLE TO GET MORPHINE DUE TO HIS PULSE. PATIENT RECIEVED TRAMADOL AND WANTED SOMETHING STRONGER. HE TOLD DR SPAULDING THAT HIS PAIN MANAGEMENT DOCTOR TENDS TO GIVE HIM MORE POTENT MEDICATIONS. SON AT BEDSIDE BECAME IRRATE WELL. REORIENTATION PROVIDED AND FAMILY UNDERSTOOD THAT MORPHINE ADMINISTRATION WAS CONTRAINDICATED AFTER FURTHER FAMILY EDUCATION WAS PROVIDED.
== END 2019-07-05 06:38 | disposition home or self-care (01) ==
LOC: ER 03:26
DX: S01.111A Laceration without foreign body of right eyelid and periocular area, initial encounter (principal); S01.21XA Laceration without foreign body of nose, initial encounter; W01.190A Fall on same level from slipping, tripping and stumbling with subsequent striking against furniture, initial encounter; Y92.003 Bedroom of unspecified non-institutional (private) residence as the place of occurrence of the external cause; E11.9 Type 2 diabetes mellitus without complications; E78.5 Hyperlipidemia, unspecified; F41.9 Anxiety disorder, unspecified; I25.10 Atherosclerotic heart disease of native coronary artery without angina pectoris
CPT/HCPCS: 70450; 70486; 72125; 90471; 90714; 99284

== ENCOUNTER → 2019-08-25 | Day surgery (SDC) | payer MEDICARE, OTHER ==
[2019-08-23 13:19] LABS: BASOPHILS % 0.5 % (0.0-1.0); EOSINOPHILS # (AUTO) 0.2 (0.0-0.4); HEMOGLOBIN 9.4 g/dL (14.0-18.0); LYMPHOCYTES # (AUTO) 1.1 (1.0-3.2); MONOCYTES # (AUTO) 0.4 (0.2-0.8)
[2019-08-23 13:25] LABS: EOSINOPHILS % 2.9 % (0.0-6.0); HEMATOCRIT 30.5 % (38.2-49.6); LYMPHOCYTES % 17.8 % (18.0-39.1); MEAN CORPUSCULAR HEMOGLOBIN 26.7 pg (28-32); MEAN CORPUSCULAR HGB CONC 30.8 g/dL (31-35); MEAN CORPUSCULAR VOLUME 86.6 fL (81-99); MONOCYTES % 6.1 % (4.4-11.3); NEUTROPHILS # (AUTO) 4.5 (2.1-6.9); NEUTROPHILS % 72.4 % (38.7-80.0); PLATELET COUNT 149 x10e3/uL (140-360); RED BLOOD COUNT 3.52 x10e6/uL (4.3-5.7)
[2019-08-23 13:41] LABS: ANION GAP 15.9 mmol/L (8-16); CALCIUM 9.1 mg/dL (8.4-10.2); CREATININE, SERUM 1.67 mg/dL (0.72-1.25); POTASSIUM 4.9 mmol/L (3.5-5.1)
--- NOTE | 2019-08-23 13:58 | Diagnostic Imaging Report ---
EXAMINATION: CHEST 2 VIEWS INDICATION: Pre-operative COMPARISON: Right shoulder radiograph 07/05/2019 FINDINGS: LINES/TUBES:None LUNGS:The lungs are well-inflated. No focal consolidation or pulmonary edema. Left basilar subsegmental atelectasis. PLEURA:No pleural effusion or pneumothorax. MEDIASTINUM:The cardiomediastinal silhouette appears normal in size and shape. BONES/SOFT TISSUES:Unchanged right posterolateral rib fractures. No acute osseous injury. ABDOMEN:No free air under the diaphragm. IMPRESSION: No focal pneumonia or pulmonary edema. Signed by: Victor M Garcia MD on 08/23/2019 1:55 PM
[~2019-08-25] MED LIST changes: +AUGMENTIN 875-1 EACH PO; +BACITRACIN 50,000 UNIT VIAL ONE; +BUPIVACAINE HCL 0.5% INJ 30 ML VIAL INJ ONE; +DEXAMETHASONE SOD PHOS INJ 4 MG/ML VIAL ONE; +FENTANYL CITRATE/PF 100MCG/2 ML INJ ONE; +LEVAQUIN500 MG PO; +LIDOCAINE HCL 2% LOCAL INJ 5 ML SDV VIAL INJ ONE; +MIDAZOLAM HCL 2 MG/2 ML VIAL ONE; +ONDANSETRON HCL INJ 2MG/ML 2ML 2 MG/ML VIAL ONE; +PROPOFOL IV EMULSION 10 MG/ML 20 ML VIAL ONE; +VANCOMYCIN 1GM/NS 250 ML 250 ML ONE
[2019-08-25 07:41] VITALS: BP 141/63
--- NOTE | 2019-08-31 13:59 | Operative Report ---
DATE OF PROCEDURE: 08/25/2019 SURGEON: Hunter Limon DPM PREOPERATIVE DIAGNOSES: 1. Right foot plantar ulceration. 2. Right foot hypertrophied, 2nd and 3rd metatarsals. PLANNED PROCEDURE: Right partial excision of 2nd and 3rd metatarsals, right foot. SURGEON: Dr. Wilda DPM. TYING MACHINE OPERATOR LUMBER: Hunter Limon DPM. ANESTHESIA: General with a postoperative block consisting of 10 mL of 0.5% Marcaine plain. HEMOSTASIS: Esmarch tourniquet applied for approximately 30 minutes. MATERIALS: 3-0 nylon. ESTIMATED BLOOD LOSS: Less than 10 mL. PATHOLOGY: Anaerobic and aerobic cultures bone sent for gross specimen. PROCEDURE NOTE: The patient was seen in the preoperative waiting room, where the correct procedure and site was identified. The patient was brought into the operating room and placed on the operating table in supine position. General anesthesia was initiated. At this time, the right foot, ankle, and leg was scrubbed, prepped, and draped in the usual aseptic manner. An Esmarch tourniquet was applied to the patient's right foot. Attention was directed to the distal aspect of the patient's right foot, where approximately 1.5 cm x 1.5 cm open ulceration was noted. Utilizing two large converging semi-elliptical incisions, the wound was excised and passed off to the back table. The dissection was carried down to the level of bone plantarly. There was noted to be moderate amounts of heterotopic ossification. Utilizing a combination of osteotome and mallet, sagittal saw, rongeur, the distal aspect of the 2nd and 3rd metatarsals were excised and passed off to the back table to be sent for gross specimen, anaerobic and aerobic cultures were taken at this time. Utilizing a hand rasp, all sharp bony prominences were excised and passed off to the back table. Next, the parabola was noted to be in anatomic alignment via intraoperative fluoroscopy. Next, the wound edges were prepped for closure by debulking fat removing all dog-ears. The incision site was reapproximated utilizing simple interrupted sutures with 3-0 nylon. The incision site was dressed with Betadine, Adaptic, 4x4s, Kerlix, William wrap, and a postop shoe. The patient tolerated the procedure and anesthesia well. The patient was transferred to the postoperative recovery unit with vital signs stable and vascular status intact. The patient was monitored there for a short period of time before being sent home with the following written and oral instructions: 1. Keep the dressing clean, dry, and intact. 2. The patient is to remain nonweightbearing to the right foot and to avoid any ambulation until being seen in the office. 3. The patient was given the office number and instructed to contact us if any problems arise. BLAISE Ceballos/FANNYL /[phone]
== END | disposition home or self-care (01) ==
LOC: OR 05:16
PROVIDERS: ATTEND Podiatrist Foot & Ankle Surgery
DX: M77.51 Other enthesopathy of right foot and ankle (principal); E11.9 Type 2 diabetes mellitus without complications; K21.9 Gastro-esophageal reflux disease without esophagitis; I25.10 Atherosclerotic heart disease of native coronary artery without angina pectoris; F41.9 Anxiety disorder, unspecified; M89.9 Disorder of bone, unspecified; I10 Essential (primary) hypertension
CPT/HCPCS: 28122; 36415; 71046; 80048; 85025; 87071; 87075; 87205; 88304; 88311; 93005; J2001; J2250; J2405; J2704; J3010; J3370; J1100

== ENCOUNTER 2019-09-03 09:37 | Emergency (ER) | payer MEDICARE, OTHER ==
[~2019-09-03] VITALS: Ht 188 cm; Wt 90.7 kg
[~2019-09-03 09:37] MED LIST changes: -BACITRACIN 50,000 UNIT VIAL ONE; -BUPIVACAINE HCL 0.5% INJ 30 ML VIAL INJ ONE; -DEXAMETHASONE SOD PHOS INJ 4 MG/ML VIAL ONE; -FENTANYL CITRATE/PF 100MCG/2 ML INJ ONE; -LIDOCAINE HCL 2% LOCAL INJ 5 ML SDV VIAL INJ ONE; -MIDAZOLAM HCL 2 MG/2 ML VIAL ONE; -ONDANSETRON HCL INJ 2MG/ML 2ML 2 MG/ML VIAL ONE; -PROPOFOL IV EMULSION 10 MG/ML 20 ML VIAL ONE; -VANCOMYCIN 1GM/NS 250 ML 250 ML ONE
--- NOTE | 2019-09-03 11:08 | NUR ---
client self cathing in restroom for urine sample
[2019-09-03 11:33] LABS: CLARITY,URINE CLEAR (CLEAR); COLOR,URINE YELLOW (YELLOW)
[2019-09-03 11:34] LABS: KETONES,URINE NEGATIVE (NEGATIVE); LEUKOCYTE ESTERASE ,URINE NEGATIVE (NEGATIVE); NITRITE,URINE NEGATIVE (NEGATIVE); PROTEIN,URINE DIPSTICK NEGATIVE (NEGATIVE); URINE UROBILINOGEN 0.2 mg/dL (0.2 - 1)
[2019-09-03 11:35] LABS: BACTERIA,URINE RARE /HPF; BILIRUBIN,URINE NEGATIVE (NEGATIVE); EPITHELIAL CELLS,URINE FEW /LPF; RBC,URINE 0-5 /HPF (0-5); WBC,URINE (MAN) 0-5 /HPF (0-5)
--- NOTE | 2019-09-03 12:07 | NUR ---
client wound to eight foot assessed by Homero KUMARI, states it looks good. Client and wish to leave without waiting for blood work.
--- NOTE | 2019-09-03 12:08 | NUR ---
hira doyle notified.
== END 2019-09-03 12:10 | disposition home or self-care (01) ==
LOC: ER 09:37
DX: R50.9 Fever, unspecified (principal); Z98.890 Other specified postprocedural states; I25.10 Atherosclerotic heart disease of native coronary artery without angina pectoris; E78.5 Hyperlipidemia, unspecified; F41.9 Anxiety disorder, unspecified
CPT/HCPCS: 81001; 87086; 87400; 99282

== ENCOUNTER 2020-12-04 17:27 | Emergency (ER) | payer MEDICARE ==
[~2020-12-04] VITALS: Ht 188 cm; Wt 90.7 kg
[2020-12-04] MEDS ORDERED: ONDANSETRON HCL INJ 2MG/ML 2ML 2 MG/ML VIAL IV STA ×2 (17:39→20:13)
[2020-12-04] MEDS ORDERED: SODIUM CHLORIDE 0.9% 1000ML 1,000 ML IV STA (17:39)
[2020-12-04 18:08] LABS: BASOPHILS # (AUTO) 0.1 (0.0-0.1); BASOPHILS % 0.4 % (0.0-1.0); EOSINOPHILS % 0.2 % (0.0-6.0); HEMATOCRIT 35.8 % (38.2-49.6); LYMPHOCYTES # (AUTO) 1.5 (1.0-3.2); LYMPHOCYTES % 11.8 % (18.0-39.1); MEAN CORPUSCULAR HEMOGLOBIN 26.6 pg (28-32); MEAN CORPUSCULAR HGB CONC 30.7 g/dL (31-35); MEAN CORPUSCULAR VOLUME 86.5 fL (81-99); MONOCYTES # (AUTO) 0.7 (0.2-0.8); MONOCYTES % 5.4 % (4.4-11.3); NEUTROPHILS % 80.7 % (38.7-80.0); PLATELET COUNT 260 x10e3/uL (140-360); RED BLOOD COUNT 4.14 x10e6/uL (4.3-5.7)
[2020-12-04 18:29] LABS: ANION GAP 16.1 mmol/L (8-16); CREATININE, SERUM 1.74 mg/dL (0.72-1.25); POTASSIUM 4.1 mmol/L (3.5-5.1)
[2020-12-04 18:30] LABS: ALBUMIN 3.8 g/dL (3.5-5.0); ALBUMIN/GLOBULIN RATIO 0.8 (0.8-2.0); CALCIUM 9.7 mg/dL (8.4-10.2); CREATINE KINASE MB 2.3 ng/mL (0-5.0)
[2020-12-04 18:41] LABS: CLARITY,URINE SL CLOUDY (CLEAR); COLOR,URINE AMBER (YELLOW); KETONES,URINE TRACE (NEGATIVE); LEUKOCYTE ESTERASE ,URINE NEGATIVE (NEGATIVE); NITRITE,URINE NEGATIVE (NEGATIVE); PROTEIN,URINE DIPSTICK >=300 (NEGATIVE); URINE UROBILINOGEN 0.2 mg/dL (0.2 - 1)
[2020-12-04 18:54] LABS: AMORPHOUS SEDIMENT,URINE FEW (FEW); BACTERIA,URINE FEW /HPF; EPITHELIAL CELLS,URINE FEW /LPF
[2020-12-04] MEDS ORDERED: MORPHINE SULFATE INJ 4 MG/ML INJ 1ML IV PRN (20:15)
[2020-12-04 22:47] LABS: CREATINE KINASE MB 2.3 ng/mL (0-5.0)
[2020-12-04] MEDS ORDERED: PANTOPRAZOLE SO40 MG PO (23:34)
[2020-12-04] MEDS ORDERED: ZOFRAN4 MG SL (23:34)
[2020-12-04 23:54] VITALS: BP 155/65
== END 2020-12-04 23:57 | disposition home or self-care (01) ==
LOC: ER 22:32
DX: R07.89 Other chest pain (principal); R10.13 Epigastric pain; E11.65 Type 2 diabetes mellitus with hyperglycemia; I10 Essential (primary) hypertension; E78.5 Hyperlipidemia, unspecified; I25.10 Atherosclerotic heart disease of native coronary artery without angina pectoris; F41.9 Anxiety disorder, unspecified; N31.9 Neuromuscular dysfunction of bladder, unspecified
CPT/HCPCS: 36415; 71045; 74177; 80053; 81001; 82550; 82553; 83690; 84484; 85025; 93005; 99284; J2270; J2405; J7030

== ENCOUNTER 2021-12-29 07:36 | Observation (INO) | payer MEDICARE ==
[2021-12-25 12:08] LABS: BASOPHILS # (AUTO) 0.1 (0.0-0.1); EOSINOPHILS # (AUTO) 0.3 (0.0-0.4); EOSINOPHILS % 4.3 % (0.0-6.0); HEMATOCRIT 31.3 % (38.2-49.6); HEMOGLOBIN 9.5 g/dL (14.0-18.0); LYMPHOCYTES # (AUTO) 1.8 (1.0-3.2); LYMPHOCYTES % 29.4 % (18.0-39.1); MEAN CORPUSCULAR HEMOGLOBIN 28.5 pg (28-32); MEAN CORPUSCULAR HGB CONC 30.4 g/dL (31-35); MONOCYTES # (AUTO) 0.5 (0.2-0.8); MONOCYTES % 7.2 % (4.4-11.3); NEUTROPHILS # (AUTO) 3.6 (2.1-6.9); NEUTROPHILS % 57.9 % (38.7-80.0); PLATELET COUNT 168 x10e3/uL (140-360); RED BLOOD COUNT 3.33 x10e6/uL (4.3-5.7); RED CELL DISTRIBUTION WIDTH 14.2 % (11.7-14.4)
[2021-12-25 12:20] LABS: INR 0.97; PROTHROMBIN TIME 13.8 seconds (11.9-14.5)
[2021-12-25 12:21] LABS: PARTIAL THROMBOPLASTIN TIME 32.2 seconds (23.8-35.5)
[2021-12-25 12:24] LABS: ANION GAP 15.8 mmol/L (8-16); CALCIUM 8.6 mg/dL (8.4-10.2); CREATININE, SERUM 1.84 mg/dL (0.72-1.25); POTASSIUM 4.8 mmol/L (3.5-5.1)
[~2021-12-29] VITALS: Ht 188 cm; Wt 111.1 kg
[~2021-12-29 07:36] MED LIST changes: +ACTOS15 MG PO; +LOSARTAN POTAS100 MG PO; +VITAMIN D250 MCG PO; +ZOFRAN4 MG SL
[2021-12-29] MEDS ORDERED: SODIUM CHLORIDE 0.9% 500ML 500 ML ONE (07:52)
[2021-12-29] MEDS ORDERED: TRANEXAMIC ACID 20 ML ONE (07:53)
[2021-12-29] MEDS ORDERED: ROPIVACAINE 246.25 MG, EPINEPHRINE HCL 1:1000 1ML 0.5 MG, CLONIDINE HCL 0.08 MG, KETORO... INJ ONE ×5 (08:00)
[2021-12-29] MEDS ORDERED: DEXAMETHASONE SOD PHOS 10 MG/1 ML VIAL ONE (08:01)
[2021-12-29] MEDS ORDERED: CELECOXIB 200 MG CAP ONE (08:01)
[2021-12-29] MEDS ORDERED: GABAPENTIN 300 MG CAP ONE (08:02)
[2021-12-29] MEDS ORDERED: DEXTROSE 5% 250ML 250 ML IV ONE (08:02)
[2021-12-29] MEDS ORDERED: DIPHENHYDRAMINE HCL INJ 50 MG/ML VIAL IV PRN (12:15)
[2021-12-29] MEDS ORDERED: ONDANSETRON HCL INJ 2MG/ML 2ML 2 MG/ML VIAL IV PRN (12:15)
[2021-12-29] MEDS ORDERED: SODIUM CHLORIDE 0.9% 1000ML 1,000 ML IV SCH (12:15)
[2021-12-29] MEDS ORDERED: ACETAMINOPHEN 650 MG SUPP PR PRN (12:15)
[2021-12-29] MEDS ORDERED: DOCUSATE SODIUM 100 MG CAP PO PRN (12:15)
[2021-12-29] MEDS ORDERED: KETOROLAC TROMETHAMINE 30 MG/ML VIAL IV PRN (12:15)
[2021-12-29] MEDS ORDERED: ZOLPIDEM TARTRATE 5 MG TAB PO PRN (12:15)
[2021-12-29] MEDS ORDERED: FENTANYL CITRATE/PF 100MCG/2 ML INJ ONE ×2 (12:45→12:56)
[2021-12-29] MEDS ORDERED: MIDAZOLAM HCL 2 MG/2 ML VIAL ONE (12:56)
[2021-12-29] MEDS ORDERED: POVIDONE IODINE 0.05% 0.05 % ML PO ONE (13:26)
[2021-12-29] MEDS ORDERED: SEVOFLURANE INHAL SOLN 250 ML PEN BTL ONE (13:26)
[2021-12-29] MEDS ORDERED: ONDANSETRON HCL INJ 2MG/ML 2ML 2 MG/ML VIAL ONE (13:26)
[2021-12-29] MEDS ORDERED: ATROPINE SULFATE 1 MG/ML VIAL ONE (13:26)
[2021-12-29] MEDS ORDERED: PROPOFOL IV EMULSION 10 MG/ML 20 ML VIAL ONE (13:26)
[2021-12-29] MEDS ORDERED: ROPIVACAINE 0.5% 5 MG/ML 30 ML SDV ONE (13:35)
[2021-12-29 13:50] VITALS: BP 160/56
[2021-12-29 13:55] VITALS: BP 160/56
[2021-12-29] MEDS ORDERED: QUETIAPINE FUMARATE 600 MG PO PRN (14:30)
[2021-12-29] MEDS ORDERED: ONDANSETRON HCL 4 MG ORAL DISINTEGRATING TAB PO PRN (14:30)
[2021-12-29] MEDS ORDERED: NON-FORMULARY MEDICATION (Ondansetron Hcl* (Zofran*) 4 MG) SL PRN (14:30)
[2021-12-29] MEDS ORDERED: NON-FORMULARY MEDICATION (Diazepam 10 MG) PO PRN (14:30)
[2021-12-29] MEDS ORDERED: DIAZEPAM 5 MG TAB PO PRN (14:30)
[2021-12-29 15:23] VITALS: BP 134/72
[2021-12-29] MEDS ORDERED: ACETAMINOPHEN 1000 MG/100 ML IV PRN (16:00)
[2021-12-29] MEDS: ASPIRIN 325 MG TAB PO SCH (17:00)
[2021-12-29] MEDS ORDERED: CELECOXIB 100 MG CAP PO SCH (17:00)
[2021-12-29] MEDS: HYDROCODONE/APAP 7.5MG-325MG 1 EA TAB PO PRN (19:30)
[2021-12-29 20:00] VITALS: BP 142/68
[2021-12-29 20:15] VITALS: BP 142/68
[2021-12-30] VITALS (8 sets, daily range): BP systolic 129–135; BP diastolic 50–57
[2021-12-30 04:43] LABS: BASOPHILS % 0.3 % (0.0-1.0); HEMATOCRIT 29.8 % (38.2-49.6); HEMOGLOBIN 8.9 g/dL (14.0-18.0); LYMPHOCYTES # (AUTO) 1.4 (1.0-3.2); LYMPHOCYTES % 14.9 % (18.0-39.1); MEAN CORPUSCULAR HEMOGLOBIN 28.3 pg (28-32); MEAN CORPUSCULAR HGB CONC 29.9 g/dL (31-35); MEAN CORPUSCULAR VOLUME 94.6 fL (81-99); MONOCYTES # (AUTO) 0.7 (0.2-0.8); MONOCYTES % 7.6 % (4.4-11.3); NEUTROPHILS # (AUTO) 7.3 (2.1-6.9); PLATELET COUNT 148 x10e3/uL (140-360); RED BLOOD COUNT 3.15 x10e6/uL (4.3-5.7); RED CELL DISTRIBUTION WIDTH 13.8 % (11.7-14.4)
[2021-12-30 05:09] LABS: ALBUMIN/GLOBULIN RATIO 0.9 (0.8-2.0); ANION GAP 15.4 mmol/L (8-16); CALCIUM 7.7 mg/dL (8.4-10.2); CREATININE, SERUM 2.14 mg/dL (0.72-1.25); POTASSIUM 5.4 mmol/L (3.5-5.1)
[2021-12-30] MEDS: HYDROCODONE/APAP 5MG-325MG TAB PO PRN ×2 (07:54→14:23)
[2021-12-30] MEDS ORDERED: ATORVASTATIN 20 MG TAB PO SCH (09:00)
[2021-12-30] MEDS ORDERED: TAMSULOSIN HCL 0.4 MG CAP PO SCH (09:00)
[2021-12-30] MEDS ORDERED: PANTOPRAZOLE SOD 40 MG TABEC PO SCH (09:00)
[2021-12-30] MEDS ORDERED: ESCITALOPRAM OXALATE 10 MG TAB PO SCH (09:00)
[2021-12-30] MEDS: ASPIRIN 325 MG TAB PO SCH (09:40)
[2021-12-30] MEDS ORDERED: MEPERIDINE HCL INJ 25 MG/ML VIAL IV ONE (11:00)
[2021-12-30] MEDS: HYDROCODONE/APAP 7.5MG-325MG 1 EA TAB PO PRN (13:08)
== END 2021-12-30 16:20 | disposition home health service (06) ==
LOC: OR 07:36 → PACU V 12:07 → MED/SURG 13:29
PROVIDERS: ADMIT Specialist; ATTEND Specialist
DX: M17.12 Unilateral primary osteoarthritis, left knee (principal); E11.22 Type 2 diabetes mellitus with diabetic chronic kidney disease; I12.9 Hypertensive chronic kidney disease with stage 1 through stage 4 chronic kidney disease, or unspecified chronic kidney disease; N18.30 Chronic kidney disease, stage 3 unspecified; E11.42 Type 2 diabetes mellitus with diabetic polyneuropathy; N40.1 Benign prostatic hyperplasia with lower urinary tract symptoms; R33.8 Other retention of urine; I25.10 Atherosclerotic heart disease of native coronary artery without angina pectoris; E78.5 Hyperlipidemia, unspecified; E87.5 Hyperkalemia; D63.8 Anemia in other chronic diseases classified elsewhere; Z01.812 Encounter for preprocedural laboratory examination; Z01.818 Encounter for other preprocedural examination; Z20.822 Contact with and (suspected) exposure to COVID-19; Z95.5 Presence of coronary angioplasty implant and graft
CPT/HCPCS: 27447; 36415 ×3; 71045; 71046; 73560; 80048; 80053; 82948 ×2; 85025 ×2; 85610; 85730; 86850; 86900; 86920; 94799 ×2; 97116; 97139 ×4; 97162; 97530 ×2; C1713; G0378 ×2; J0171; J0461; J0690 ×2; J1100; J1885; J2175; J2250; J2405; J2704; J2795; J3010; J7030; J7040; J7070; S0164; U0002

== ENCOUNTER 2022-02-03 13:50 | Outpatient (RCR) | payer MEDICARE | END 2022-02-22 | LOC: PT 13:50 | PROVIDERS: ATTEND Specialist | DX: Z47.1 Aftercare following joint replacement surgery (principal); Z96.652 Presence of left artificial knee joint | CPT/HCPCS: 97139 ==

== ENCOUNTER 2022-02-23 10:24 | Outpatient (RCR) | payer MEDICARE | END 2022-03-25 | LOC: PT 10:24 | PROVIDERS: ATTEND Specialist | DX: Z47.1 Aftercare following joint replacement surgery (principal); Z96.652 Presence of left artificial knee joint ==

== ENCOUNTER → 2022-04-21 | Emergency (ER) | payer MEDICARE ==
[~2022-04-21] VITALS: Ht 188 cm; Wt 111.1 kg
[~2022-04-21] MED LIST changes: +OXYCODONE HCL IR 5 MG TAB ONE; +OXYCODONE HCL IR 5 MG TAB PO ONE; +PROMETHAZINE HCL (IM) 25 MG/ML VIAL IM PRN
== END | disposition home or self-care (01) ==
LOC: ER 17:45
DX: G89.29 Other chronic pain (principal); G62.9 Polyneuropathy, unspecified; I10 Essential (primary) hypertension; E11.9 Type 2 diabetes mellitus without complications; I25.10 Atherosclerotic heart disease of native coronary artery without angina pectoris; E78.5 Hyperlipidemia, unspecified; F41.9 Anxiety disorder, unspecified; N31.9 Neuromuscular dysfunction of bladder, unspecified
CPT/HCPCS: 99282

== ENCOUNTER 2022-05-10 08:08 | Inpatient (IN) | payer MEDICARE ==
[~2022-05-10] VITALS: Ht 188 cm; Wt 111.1 kg
[~2022-05-10 08:08] MED LIST changes: -OXYCODONE HCL IR 5 MG TAB ONE; -OXYCODONE HCL IR 5 MG TAB PO ONE; -PROMETHAZINE HCL (IM) 25 MG/ML VIAL IM PRN
[2022-05-10 08:55] LABS: BASOPHILS % 0.2 % (0.0-1.0); HEMATOCRIT 29.2 % (38.2-49.6); HEMOGLOBIN 8.4 g/dL (14.0-18.0); LYMPHOCYTES # (AUTO) 1.1 (1.0-3.2); LYMPHOCYTES % 7.6 % (18.0-39.1); MEAN CORPUSCULAR HEMOGLOBIN 27.5 pg (28-32); MEAN CORPUSCULAR HGB CONC 28.8 g/dL (31-35); MEAN CORPUSCULAR VOLUME 95.4 fL (81-99); MONOCYTES # (AUTO) 0.7 (0.2-0.8); MONOCYTES % 4.9 % (4.4-11.3); NEUTROPHILS # (AUTO) 12.8 (2.1-6.9); NEUTROPHILS % 86.9 % (38.7-80.0); PLATELET COUNT 161 x10e3/uL (140-360); RED BLOOD COUNT 3.06 x10e6/uL (4.3-5.7); RED CELL DISTRIBUTION WIDTH 15.6 % (11.7-14.4)
[2022-05-10 09:13] LABS: ALBUMIN 3.2 g/dL (3.5-5.0); ALBUMIN/GLOBULIN RATIO 0.9 (0.8-2.0); ALKALINE PHOSPHATASE 85 IU/L (40-150); ANION GAP 19.1 mmol/L (8-16); BLOOD UREA NITROGEN 41 mg/dL (7-26); BUN/CREATININE RATIO 16 (6-25); CALCIUM 8.3 mg/dL (8.4-10.2); CARBON DIOXIDE 23 mmol/L (22-29); CHLORIDE 103 mmol/L (98-107); CREATININE, SERUM 2.64 mg/dL (0.72-1.25); GLUCOSE 164 mg/dL (74-118); POTASSIUM 5.1 mmol/L (3.5-5.1); SODIUM 140 mmol/L (136-145)
[2022-05-10 09:15] LABS: ALANINE AMINOTRANSFERASE < 6 IU/L (0-55)
[2022-05-10] MEDS ORDERED: Doxycycline IV 100 MG in SODIUM CHLORIDE 0.9% 100 ML IV STA (09:28)
[2022-05-10] MEDS ORDERED: LACTATED RINGER'S 1,000 ML INJ ONE (09:30)
[2022-05-10] MEDS ORDERED: ALBUTEROL/IPRATROPIUM 3 ML NEB NEB ONE (09:30)
[2022-05-10] MEDS: SODIUM CHLORIDE 0.9% 1000ML 1,000 ML IV SCH ×2 (10:16→10:27)
[2022-05-10] MEDS ORDERED: DEXTROSE 50% SYRINGE 50 ML IV PRN (12:30)
[2022-05-10] MEDS ORDERED: ACTOS15 MG PO (14:02)
[2022-05-10] MEDS ORDERED: NIFEDIPINE ER30 M1 PO (14:02)
[2022-05-10 14:28] LABS: ABG HCO3 28 mmol/L (22-26); ABG PCO2 64 mmHg (35-45); ABG PH 7.25 (7.35-7.45); ABG PO2 49 mmHg (80-105); ABG TCO2 30
[2022-05-10] MEDS ORDERED: Doxycycline IV 100 MG in SODIUM CHLORIDE 0.9% 100 ML IV SCH (14:30)
[2022-05-10 15:01] LABS: CLARITY,URINE CLEAR (CLEAR); COLOR,URINE YELLOW (YELLOW)
[2022-05-10 15:02] LABS: KETONES,URINE NEGATIVE (NEGATIVE); LEUKOCYTE ESTERASE ,URINE NEGATIVE (NEGATIVE); NITRITE,URINE NEGATIVE (NEGATIVE); PROTEIN,URINE DIPSTICK NEGATIVE (NEGATIVE); URINE UROBILINOGEN 0.2 mg/dL (0.2 - 1)
[2022-05-10 15:03] LABS: BACTERIA,URINE MANY /HPF; RBC,URINE 0-5 /HPF (0-5); WBC,URINE (MAN) 0-5 /HPF (0-5)
[2022-05-10] MEDS: ALBUTEROL/IPRATROPIUM 3 ML NEB NEB SCH ×3 (15:10→23:30)
[2022-05-10] MEDS ORDERED: HYDRALAZINE HCL 20 MG/ML VIAL IV PRN (15:45)
[2022-05-10] MEDS ORDERED: LEVOFLOXACIN 750MG/D5W 150ML 150 ML IV ONE (16:15)
[2022-05-10] MEDS: INSULIN LISPRO 100 UNIT/1 ML 3ML VIAL SQ SCH ×2 (16:30→21:00)
[2022-05-10 17:17] VITALS: BP 172/50
[2022-05-10 18:31] VITALS: BP 172/50
[2022-05-10 20:00] VITALS: BP 162/52
[2022-05-10 20:38] VITALS: BP 162/52
[2022-05-10] MEDS: HEPARIN SOD (PORCINE) 5,000 UNIT/ML VIAL SC SCH (21:00)
[2022-05-10] MEDS: Doxycycline IV 100 MG in SODIUM CHLORIDE 0.9% 100 ML IV SCH (21:37)
[2022-05-10] MEDS: HYDROCODONE/APAP 5MG-325MG TAB PO PRN (21:50)
[2022-05-10] MEDS: ATORVASTATIN 20 MG TAB PO SCH (21:50)
[2022-05-11] VITALS (7 sets, daily range): BP systolic 135–166; BP diastolic 44–63
[2022-05-11] MEDS: SODIUM CHLORIDE 0.9% 1000ML 1,000 ML IV SCH ×2 (02:30→12:22)
[2022-05-11] MEDS: HYDROCODONE/APAP 5MG-325MG TAB PO PRN ×2 (03:00→09:49)
[2022-05-11] MEDS: ALBUTEROL/IPRATROPIUM 3 ML NEB NEB SCH ×6 (03:20→23:25)
[2022-05-11 05:54] LABS: BASOPHILS % 0.3 % (0.0-1.0); EOSINOPHILS # (AUTO) 0.1 (0.0-0.4); EOSINOPHILS % 1.2 % (0.0-6.0); HEMATOCRIT 28.6 % (38.2-49.6); LYMPHOCYTES # (AUTO) 1.2 (1.0-3.2); LYMPHOCYTES % 11.7 % (18.0-39.1); MEAN CORPUSCULAR HEMOGLOBIN 27.4 pg (28-32); MEAN CORPUSCULAR VOLUME 97.9 fL (81-99); MONOCYTES # (AUTO) 0.5 (0.2-0.8); MONOCYTES % 4.7 % (4.4-11.3); NEUTROPHILS # (AUTO) 8.2 (2.1-6.9); NEUTROPHILS % 81.4 % (38.7-80.0); PLATELET COUNT 122 x10e3/uL (140-360); RED BLOOD COUNT 2.92 x10e6/uL (4.3-5.7); RED CELL DISTRIBUTION WIDTH 15.9 % (11.7-14.4)
[2022-05-11 06:14] LABS: ANION GAP 16.7 mmol/L (8-16); CALCIUM 7.9 mg/dL (8.4-10.2); CREATININE, SERUM 2.23 mg/dL (0.72-1.25); POTASSIUM 4.7 mmol/L (3.5-5.1)
[2022-05-11] MEDS: INSULIN LISPRO 100 UNIT/1 ML 3ML VIAL SQ SCH ×4 (07:30→21:00)
[2022-05-11] MEDS: TAMSULOSIN HCL 0.4 MG CAP PO SCH (09:41)
[2022-05-11] MEDS: NIFEDIPINE CR 30 MG TAB PO SCH (09:41)
[2022-05-11] MEDS: PANTOPRAZOLE SOD 40 MG TABEC PO SCH (09:41)
[2022-05-11] MEDS: Doxycycline IV 100 MG in SODIUM CHLORIDE 0.9% 100 ML IV SCH (09:41)
[2022-05-11] MEDS: ESCITALOPRAM OXALATE 10 MG TAB PO SCH (09:41)
[2022-05-11 10:10] LABS: % IRON SATURATION 6 % (15-50); IRON 17 ug/dL (65-175); TOTAL IRON BINDING CAPACITY 295 ug/dL (261-478); TRANSFERRIN 211 mg/dL (174-364)
[2022-05-11] MEDS: HEPARIN SOD (PORCINE) 5,000 UNIT/ML VIAL SC SCH ×2 (10:25→21:00)
[2022-05-11] MEDS: IRON SUCROSE 100 MG in SODIUM CHLORIDE 0.9% 100 ML IV SCH (12:19)
[2022-05-11 12:24] LABS: ABG HCO3 28 mmol/L (22-26); ABG PCO2 67 mmHg (35-45); ABG PH 7.23 (7.35-7.45); ABG PO2 56 mmHg (80-105)
[2022-05-11 12:25] LABS: ABG TCO2 30
[2022-05-11] MEDS: DOXYCYCLINE HYCLATE TABLET 100 MG TAB PO SCH (16:15)
[2022-05-11] MEDS: HYDROCODONE/APAP 7.5MG-325MG 1 EA TAB PO PRN ×2 (16:16→23:28)
[2022-05-11] MEDS: ATORVASTATIN 20 MG TAB PO SCH (21:24)
[2022-05-12] VITALS: BP 153/50
[2022-05-12] MEDS: ALBUTEROL/IPRATROPIUM 3 ML NEB NEB SCH ×2 (03:15→07:20)
[2022-05-12 04:00] VITALS: BP 150/52
[2022-05-12 05:19] LABS: ANION GAP 15.9 mmol/L (8-16); CALCIUM 8.1 mg/dL (8.4-10.2); CREATININE, SERUM 2.02 mg/dL (0.72-1.25); POTASSIUM 4.9 mmol/L (3.5-5.1)
[2022-05-12] MEDS: SODIUM CHLORIDE 0.9% 1000ML 1,000 ML IV SCH ×2 (05:30→08:54)
[2022-05-12] MEDS: INSULIN LISPRO 100 UNIT/1 ML 3ML VIAL SQ SCH ×2 (07:30→11:30)
[2022-05-12 08:01] VITALS: BP 150/53
[2022-05-12 08:43] VITALS: BP 150/53
[2022-05-12] MEDS: DOXYCYCLINE HYCLATE TABLET 100 MG TAB PO SCH (09:41)
[2022-05-12] MEDS: ESCITALOPRAM OXALATE 10 MG TAB PO SCH (09:41)
[2022-05-12] MEDS: TAMSULOSIN HCL 0.4 MG CAP PO SCH (09:41)
[2022-05-12] MEDS: PANTOPRAZOLE SOD 40 MG TABEC PO SCH (09:42)
[2022-05-12] MEDS: NIFEDIPINE CR 30 MG TAB PO SCH (09:42)
[2022-05-12] MEDS: HYDROCODONE/APAP 7.5MG-325MG 1 EA TAB PO PRN (09:48)
[2022-05-12] MEDS: HEPARIN SOD (PORCINE) 5,000 UNIT/ML VIAL SC SCH (10:04)
[2022-05-12] MEDS ORDERED: AMOX TR-K CLV1 EAC2 PO (11:23)
[2022-05-12] MEDS: IRON SUCROSE 100 MG in SODIUM CHLORIDE 0.9% 100 ML IV SCH (12:00)
== END 2022-05-12 12:46 | disposition home or self-care (01) | DRG 871 ==
LOC: ER 08:14 → ERHOLD 09:35 → MED/SURG 15:42
PROVIDERS: ADMIT Internal Medicine; ATTEND Internal Medicine
DX: A41.9 Sepsis, unspecified organism (principal); J18.9 Pneumonia, unspecified organism; N39.0 Urinary tract infection, site not specified; E87.20 Acidosis, unspecified; R65.20 Severe sepsis without septic shock; R09.02 Hypoxemia; E11.22 Type 2 diabetes mellitus with diabetic chronic kidney disease; I12.9 Hypertensive chronic kidney disease with stage 1 through stage 4 chronic kidney disease, or unspecified chronic kidney disease; N18.30 Chronic kidney disease, stage 3 unspecified; Z79.85 Long-term (current) use of injectable non-insulin antidiabetic drugs; N40.0 Benign prostatic hyperplasia without lower urinary tract symptoms; B96.20 Unspecified Escherichia coli [E. coli] as the cause of diseases classified elsewhere; F41.9 Anxiety disorder, unspecified; F32.A Depression, unspecified; E78.00 Pure hypercholesterolemia, unspecified; N31.9 Neuromuscular dysfunction of bladder, unspecified; M17.12 Unilateral primary osteoarthritis, left knee; Z96.652 Presence of left artificial knee joint; I25.10 Atherosclerotic heart disease of native coronary artery without angina pectoris; D63.8 Anemia in other chronic diseases classified elsewhere; R33.9 Retention of urine, unspecified; Z79.899 Other long term (current) drug therapy
CPT/HCPCS: 36415; 36600; 71046; 71250; 78580; 80048; 80053; 81001; 82805; 82948; 83540; 83605; 83880; 84466; 84484; 85025; 85379; 87040; 87086; 87186; 87400; 93005; 94640; 94799; 99251; 99285; A9540; J0360; J0692; J0696; J1644; J1756; J7030; J7050; J7121

== ENCOUNTER → 2022-08-28 | Outpatient (CLI) | payer MEDICARE ==
[~2022-08-28] MED LIST changes: +AMOX TR-K CLV1 EAC2 PO; +NIFEDIPINE ER30 M1 PO
== END ==
LOC: CT 15:41
PROVIDERS: ATTEND Internal Medicine
DX: Z87.01 Personal history of pneumonia (recurrent) (principal)
CPT/HCPCS: 71250

== ENCOUNTER 2022-10-11 12:25 | Emergency (ER) | payer MEDICARE ==
[~2022-10-11] VITALS: Ht 188 cm; Wt 111.1 kg
[2022-10-11] MEDS ORDERED: LIDOCAINE 4% PATCH TP STA (13:23)
[2022-10-11] MEDS ORDERED: HYDROCODONE/APAP 5MG-325MG TAB PO ONE (13:30)
[2022-10-11] MEDS ORDERED: Morphine 2mg Syringe 2 MG/ML SYR IM ONE (13:45)
[2022-10-11] MEDS ORDERED: Morphine 2mg Syringe 2 MG/ML SYR ONE (13:52)
== END 2022-10-11 15:18 | disposition home or self-care (01) ==
LOC: ER 12:41
DX: M25.561 Pain in right knee (principal); K59.00 Constipation, unspecified; N39.0 Urinary tract infection, site not specified; I10 Essential (primary) hypertension; E11.9 Type 2 diabetes mellitus without complications; I25.10 Atherosclerotic heart disease of native coronary artery without angina pectoris; E78.5 Hyperlipidemia, unspecified; N40.0 Benign prostatic hyperplasia without lower urinary tract symptoms; N31.9 Neuromuscular dysfunction of bladder, unspecified; F41.9 Anxiety disorder, unspecified; F32.A Depression, unspecified; W19.XXXA Unspecified fall, initial encounter; Z89.431 Acquired absence of right foot; Z87.891 Personal history of nicotine dependence; Z79.84 Long term (current) use of oral hypoglycemic drugs; Z79.899 Other long term (current) drug therapy
CPT/HCPCS: 73562; 74019; 99283; J2270

== ENCOUNTER 2025-01-29 13:11 | Inpatient (IN) | payer MEDICARE ==
[~2025-01-29] VITALS: Ht 188 cm; Wt 99.8 kg
[~2025-01-29 13:11] MED LIST changes: +OXYCODONE HCL10 MG PO
[2025-01-29 14:50] VITALS: TEMP 98.6
[2025-01-29 15:32] LABS: BASOPHILS % 0.6 % (0.0-1.0); EOSINOPHILS % 1.7 % (0.0-6.0); LYMPHOCYTES % 17.1 % (18.0-39.1); MONOCYTES % 5.5 % (4.4-11.3); NEUTROPHILS % 74.9 % (38.7-80.0); RED CELL DISTRIBUTION WIDTH 14.7 % (11.7-14.4)
[2025-01-29] MEDS ORDERED: Morphine 4mg INJECTION 4 MG/ML INJ IV PRN (16:15)
[2025-01-29 16:49] LABS: EST GLOMERULAR FILTRATION RATE 10.0 ML/MIN (>=60)
[2025-01-29 17:31] VITALS: PULSE 74; RESP 20; O2SAT 98
[2025-01-29] MEDS: HYDROCODONE/APAP 5MG-325MG TAB PO ONE (17:33)
[2025-01-29 18:45] VITALS: PULSE 59; RESP 17
[2025-01-29 19:39] VITALS: BP 123/48; PULSE 59; RESP 17; TEMP 97.6; O2SAT 91
[2025-01-29 21:00] VITALS: BP 123/48; PULSE 59; RESP 17; TEMP 97.6; O2SAT 91
[2025-01-29] MEDS: ONDANSETRON HCL INJ 2MG/ML 2ML 2 MG/ML VIAL IV PRN (21:50)
[2025-01-29] MEDS: SODIUM CHLORIDE 0.9% 1000ML 1,000 ML IV SCH (21:50)
[2025-01-29] MEDS: HYDROMORPHONE 1MG/1ML INJ IV PRN (21:50)
[2025-01-29] MEDS: BUMETANIDE 1 MG TAB PO ONE (21:51)
[2025-01-29] MEDS ORDERED: VITAMIN B COMP1 EAC1 PO (22:00)
[2025-01-29] MEDS ORDERED: ASPIRIN EC81 MG PO (22:00)
[2025-01-29] MEDS ORDERED: BUMETANIDE1 MG PO (22:00)
[2025-01-29] MEDS ORDERED: XANAX1 MG PO (22:00)
[2025-01-29] MEDS ORDERED: PERCOCET 10-321 EACH PO (22:00)
[2025-01-29] MEDS ORDERED: ENTRESTO 24 MG1 EACH PO (22:00)
[2025-01-29] MEDS ORDERED: MAGNESIUM OXID400 MG PO (22:00)
[2025-01-29] MEDS ORDERED: PRISTIQ ER50 MG PO (22:00)
[2025-01-29] MEDS ORDERED: DIALYVITE 8000.8 M1 PO (22:00)
[2025-01-29] MEDS ORDERED: FERROUS SULFAT325 M1 PO (22:00)
[2025-01-29] MEDS ORDERED: NIFEDIPINE10 MG PO (22:00)
[2025-01-29] MEDS ORDERED: METOPROLOL SUCC25 MG PO (22:00)
[2025-01-29] MEDS ORDERED: VITAMIN D350 MC1 PO (22:00)
[2025-01-29] MEDS ORDERED: CLONIDINE HCL0.1 MG PO (22:00)
[2025-01-29] MEDS ORDERED: ELIQUIS5 MG PO (22:00)
[2025-01-29] MEDS ORDERED: QUESTRAN PACKET4 GM PO (22:00)
[2025-01-29] MEDS ORDERED: CALCIUM ACETAT667 M1 PO (22:00)
[2025-01-29] MEDS ORDERED: QUETIAPINE FUMA25 MG PO (22:00)
[2025-01-29 23:06] VITALS: BP 124/54; PULSE 58; RESP 17; TEMP 97.4; O2SAT 97
[2025-01-30] VITALS (7 sets, daily range): BP systolic 130–148; BP diastolic 45–49; PULSE 59–68; RESP 16–19; TEMP 97.6–98.3; O2SAT 86–100
[2025-01-30 07:18] LABS: BASOPHILS % 0.3 % (0.0-1.0); EOSINOPHILS % 1.8 % (0.0-6.0); LYMPHOCYTES % 14.8 % (18.0-39.1); MONOCYTES % 5.8 % (4.4-11.3); NEUTROPHILS % 77.0 % (38.7-80.0); RED CELL DISTRIBUTION WIDTH 14.6 % (11.7-14.4)
[2025-01-30 07:42] LABS: EST GLOMERULAR FILTRATION RATE 10.0 ML/MIN (>=60)
[2025-01-30] MEDS: FUROSEMIDE INJ 10 MG/ML 4 ML VIAL IV ONE (08:24)
[2025-01-30] MEDS ORDERED: BUMETANIDE 1 MG TAB PO SCH (09:00)
[2025-01-30] MEDS: SENNOSIDES 8.6 MG TAB PO SCH (11:06)
[2025-01-30] MEDS: DOCUSATE SODIUM 100 MG CAP PO SCH (11:06)
[2025-01-30] MEDS: FUROSEMIDE INJ 10 MG/ML 4 ML VIAL IV SCH ×2 (16:00→17:15)
[2025-01-30] MEDS: HYDROMORPHONE 1MG/1ML INJ IV PRN (18:44)
[2025-01-31] VITALS (11 sets, daily range): BP systolic 125–161; BP diastolic 42–60; PULSE 59–69; RESP 12–20; TEMP 97.7–99.3; O2SAT 97–100
[2025-01-31 06:27] LABS: BASOPHILS % 0.3 % (0.0-1.0); EOSINOPHILS % 2.3 % (0.0-6.0); LYMPHOCYTES % 29.9 % (18.0-39.1); MONOCYTES % 6.7 % (4.4-11.3); NEUTROPHILS % 60.6 % (38.7-80.0); RED CELL DISTRIBUTION WIDTH 14.7 % (11.7-14.4)
[2025-01-31 06:58] LABS: EST GLOMERULAR FILTRATION RATE 11.0 ML/MIN (>=60)
[2025-01-31] MEDS: ASPIRIN 81 MG ENTERIC COATED PO SCH (09:24)
[2025-01-31] MEDS: METOPROLOL SUCCINATE 25 MG TAB XL PO SCH (09:26)
[2025-01-31] MEDS: ATORVASTATIN 20 MG TAB PO SCH (09:27)
[2025-01-31] MEDS: FOLIC ACID/CYANOCOB/PYRIDOXINE TAB PO SCH (09:27)
[2025-01-31] MEDS: FERROUS SULFATE 325 MG TAB PO SCH (09:28)
[2025-01-31] MEDS: APIXABAN 2.5 MG TABLET PO SCH (09:28)
[2025-01-31] MEDS: DESVENLAFAXINE SUCCINATE 50 MG TAB.SR.24H PO SCH (11:47)
[2025-01-31] MEDS: METRONIDAZOLE 500 MG TAB PO SCH (14:27)
[2025-01-31 18:01] LABS: LEUKOCYTE ESTERASE ,URINE 1+ (NEGATIVE)
[2025-01-31 18:02] LABS: PROTEIN,URINE DIPSTICK 1+ (NEGATIVE); URINE UROBILINOGEN 0.2 mg/dL (0.2 - 1)
[2025-01-31 18:08] LABS: WBC,URINE (MAN) >50 /HPF (0-5); YEAST,URINE MODERATE
[2025-01-31 18:54] LABS: EOSINOPHIL SMEAR,URINE NONE SEEN (NONE SEEN)
[2025-02-01] VITALS (14 sets, daily range): BP systolic 104–172; BP diastolic 53–68; PULSE 54–79; RESP 16–20; TEMP 97.3–98.9; O2SAT 94–100
[2025-02-01 06:36] LABS: BASOPHILS % 0.5 % (0.0-1.0); EOSINOPHILS % 2.5 % (0.0-6.0); LYMPHOCYTES % 24.5 % (18.0-39.1); MONOCYTES % 6.9 % (4.4-11.3); NEUTROPHILS % 65.1 % (38.7-80.0); RED CELL DISTRIBUTION WIDTH 14.4 % (11.7-14.4)
[2025-02-01 07:00] LABS: EST GLOMERULAR FILTRATION RATE 12.0 ML/MIN (>=60)
[2025-02-01 14:05] LABS: CDIFF AG QUIK CHEK NEGATIVE (NEGATIVE); CDIFF TOX QUIK CHEK NEGATIVE (NEGATIVE)
[2025-02-02] VITALS (7 sets, daily range): BP systolic 127–171; BP diastolic 58–68; PULSE 58–72; RESP 18–20; TEMP 98.1–98.2; O2SAT 96–100
[2025-02-02 10:01] LABS: BASOPHILS % 0.4 % (0.0-1.0); EOSINOPHILS % 2.7 % (0.0-6.0); LYMPHOCYTES % 24.8 % (18.0-39.1); MONOCYTES % 6.3 % (4.4-11.3); NEUTROPHILS % 65.4 % (38.7-80.0); RED CELL DISTRIBUTION WIDTH 14.3 % (11.7-14.4)
[2025-02-02 10:33] LABS: EST GLOMERULAR FILTRATION RATE 13.0 ML/MIN (>=60)
== END 2025-02-02 18:34 | disposition home or self-care (01) | DRG 291 ==
LOC: ER 13:49 → ERHOLD 16:17 → MED/SURG2 19:55
PROVIDERS: ADMIT Internal Medicine; ATTEND Internal Medicine
PROC: 0T9B70Z Drainage of Bladder with Drainage Device, Via Natural or Artificial Opening (ICD-10-PCS; principal; 2025-01-29)
PROC: 02HV33Z Insertion of Infusion Device into Superior Vena Cava, Percutaneous Approach (ICD-10-PCS; 2025-01-29)
DX: I13.2 Hypertensive heart and chronic kidney disease with heart failure and with stage 5 chronic kidney disease, or end stage renal disease (principal); I50.33 Acute on chronic diastolic (congestive) heart failure; J96.01 Acute respiratory failure with hypoxia; N18.5 Chronic kidney disease, stage 5; E44.0 Moderate protein-calorie malnutrition; N39.0 Urinary tract infection, site not specified; N25.81 Secondary hyperparathyroidism of renal origin; N17.9 Acute kidney failure, unspecified; E11.22 Type 2 diabetes mellitus with diabetic chronic kidney disease; Z66 Do not resuscitate; E11.42 Type 2 diabetes mellitus with diabetic polyneuropathy; D63.1 Anemia in chronic kidney disease; D63.8 Anemia in other chronic diseases classified elsewhere; I25.10 Atherosclerotic heart disease of native coronary artery without angina pectoris; E78.5 Hyperlipidemia, unspecified; I48.0 Paroxysmal atrial fibrillation; F41.9 Anxiety disorder, unspecified; M17.11 Unilateral primary osteoarthritis, right knee; F32.9 Major depressive disorder, single episode, unspecified; Z68.28 Body mass index [BMI] 28.0-28.9, adult; Z79.82 Long term (current) use of aspirin; Z95.0 Presence of cardiac pacemaker; Z95.5 Presence of coronary angioplasty implant and graft; Z87.440 Personal history of urinary (tract) infections; Z89.431 Acquired absence of right foot; Z89.421 Acquired absence of other right toe(s)
CPT/HCPCS: 36415; 36569; 71045; 71046; 76770; 80048; 80053; 81001; 81015; 82550; 82948; 83735; 83880; 84484; 85025; 87086; 87186; 87324; 87449; 93005; 93306; 94799; 99284; J0692; J1171; J1938; J2270; J2405; J7030

== ENCOUNTER 2025-02-14 22:57 | Inpatient (IN) | payer MEDICARE ==
[~2025-02-14] VITALS: Ht 188 cm; Wt 103.4 kg
[~2025-02-14 22:57] MED LIST changes: +ASPIRIN EC81 MG PO; +BUMETANIDE1 MG PO; +CALCIUM ACETAT667 M1 PO; +CLONIDINE HCL0.1 MG PO; +DIALYVITE 8000.8 M1 PO; +ELIQUIS5 MG PO; +ENTRESTO 24 MG1 EACH PO; +FERROUS SULFAT325 M1 PO; +MAGNESIUM OXID400 MG PO; +METOPROLOL SUCC25 MG PO; +NIFEDIPINE10 MG PO; +PERCOCET 10-321 EACH PO; +PRISTIQ ER50 MG PO; +QUESTRAN PACKET4 GM PO; +QUETIAPINE FUMA25 MG PO; +VITAMIN B COMP1 EAC1 PO; +VITAMIN D350 MC1 PO; +XANAX1 MG PO
[2025-02-14 23:00] VITALS: TEMP 98
[2025-02-14 23:32] LABS: BASOPHILS % 0.3 % (0.0-1.0); EOSINOPHILS % 0.4 % (0.0-6.0); LYMPHOCYTES % 18.6 % (18.0-39.1); MONOCYTES % 7.5 % (4.4-11.3); NEUTROPHILS % 72.6 % (38.7-80.0); RED CELL DISTRIBUTION WIDTH 14.7 % (11.7-14.4)
[2025-02-14 23:56] LABS: EST GLOMERULAR FILTRATION RATE 6 ML/MIN (>=60)
[2025-02-15] VITALS (11 sets, daily range): BP systolic 104–123; BP diastolic 44–54; PULSE 58–100; RESP 16–18; TEMP 97.3–98.3; O2SAT 92–99
[2025-02-15] MEDS: ONDANSETRON HCL INJ 2MG/ML 2ML 2 MG/ML VIAL IV STA (00:01)
[2025-02-15] MEDS: Morphine 4mg INJECTION 4 MG/ML INJ IV STA (00:01)
[2025-02-15] MEDS ORDERED: SODIUM CHLORIDE FLUSH 10 ML SYR INJ PRN (02:00)
[2025-02-15] MEDS: FUROSEMIDE INJ 10 MG/ML 4 ML VIAL IV SCH ×2 (04:40→09:21)
[2025-02-15] MEDS ORDERED: BUMETANIDE1 MG PO (05:49)
[2025-02-15] MEDS: LEVOFLOXACIN 250MG/D5W 50ML 50 ML IV SCH (09:16)
[2025-02-15] MEDS: SODIUM FERRIC GLUCONATE COMPLX 125 MG in SODIUM CHLORIDE 0.9% 100 ML IV SCH (12:25)
[2025-02-15] MEDS: Morphine 2mg Syringe 2 MG/ML SYR IV PRN (13:32)
[2025-02-15] MEDS: FLUCONAZOLE 100 MG TAB PO SCH (14:46)
[2025-02-16] VITALS (13 sets, daily range): BP systolic 105–136; BP diastolic 37–63; PULSE 61–70; RESP 12–18; TEMP 97.2–98.2; O2SAT 93–99
[2025-02-16 07:08] LABS: BASOPHILS % 0.3 % (0.0-1.0); EOSINOPHILS % 1.2 % (0.0-6.0); LYMPHOCYTES % 12.8 % (18.0-39.1); MONOCYTES % 8.7 % (4.4-11.3); NEUTROPHILS % 76.6 % (38.7-80.0); RED CELL DISTRIBUTION WIDTH 14.9 % (11.7-14.4)
[2025-02-16 07:24] LABS: EST GLOMERULAR FILTRATION RATE 5.0 ML/MIN (>=60)
[2025-02-16 10:19] LABS: INR 1.52
[2025-02-16] MEDS ORDERED: LIDOCAINE HCL 1% 30ML-PF VIAL ONE (11:19)
[2025-02-16] MEDS ORDERED: HEPARIN SOD (PORCINE) 1000 UNIT/ML SDV ONE (11:19)
[2025-02-16] MEDS ORDERED: HEPARIN SOD (PORCINE) 1000 UNIT/ML SDV IV PRN (19:00)
[2025-02-16] MEDS ORDERED: MANNITOL 25% 12.5GM/50 ML VIAL IV PRN (19:00)
[2025-02-16] MEDS ORDERED: SODIUM CHLORIDE 0.9% 1000ML 2,000 ML IV PRN (19:00)
[2025-02-16] MEDS: MANNITOL 25% 12.5GM/50ML 100 ML ONE (20:15)
[2025-02-16] MEDS: HEPARIN SOD (PORCINE) 1000 UNIT/ML SDV ONE (20:16)
[2025-02-16 23:23] LABS: EST GLOMERULAR FILTRATION RATE 6.0 ML/MIN (>=60)
[2025-02-17] VITALS (10 sets, daily range): BP systolic 118–155; BP diastolic 41–58; PULSE 60–82; RESP 12–20; TEMP 97.4–98.6; O2SAT 94–98
[2025-02-17 06:44] LABS: BASOPHILS % 0.5 % (0.0-1.0); EOSINOPHILS % 1.0 % (0.0-6.0); LYMPHOCYTES % 14.4 % (18.0-39.1); MONOCYTES % 8.0 % (4.4-11.3); NEUTROPHILS % 75.6 % (38.7-80.0); RED CELL DISTRIBUTION WIDTH 14.7 % (11.7-14.4)
[2025-02-17 07:36] LABS: EST GLOMERULAR FILTRATION RATE 6.0 ML/MIN (>=60)
[2025-02-17] MEDS ORDERED: PANTOPRAZOLE SOD 40 MG TABEC PO SCH (12:30)
[2025-02-17] MEDS: SODIUM CHLORIDE 0.9% 250ML 250 ML IV ONE (13:49)
[2025-02-18] VITALS (11 sets, daily range): BP systolic 132–147; BP diastolic 48–56; PULSE 55–74; RESP 17–20; TEMP 97.5–98.7; O2SAT 92–99
[2025-02-18 06:01] LABS: BASOPHILS % 0.3 % (0.0-1.0); EOSINOPHILS % 0.8 % (0.0-6.0); LYMPHOCYTES % 9.4 % (18.0-39.1); MONOCYTES % 7.1 % (4.4-11.3); NEUTROPHILS % 81.9 % (38.7-80.0); RED CELL DISTRIBUTION WIDTH 15.1 % (11.7-14.4)
[2025-02-18 06:45] LABS: EST GLOMERULAR FILTRATION RATE 9.0 ML/MIN (>=60)
[2025-02-18] MEDS: SODIUM CHLORIDE 0.9% 250ML 250 ML ONE (07:51)
[2025-02-18] MEDS: ALBUMIN 25% 12.5GM 50ML 0 ML IV ONE (07:51)
[2025-02-18 12:42] LABS: EST GLOMERULAR FILTRATION RATE 9.0 ML/MIN (>=60)
[2025-02-18] MEDS: HYDROMORPHONE 1MG/1ML INJ IV PRN (20:37)
[2025-02-19] VITALS (11 sets, daily range): BP systolic 140–156; BP diastolic 52–63; PULSE 60–71; RESP 16–20; TEMP 97.5–98.5; O2SAT 95–100
[2025-02-19 05:26] LABS: BASOPHILS % 0.5 % (0.0-1.0); EOSINOPHILS % 1.0 % (0.0-6.0); LYMPHOCYTES % 16.0 % (18.0-39.1); MONOCYTES % 7.7 % (4.4-11.3); NEUTROPHILS % 74.3 % (38.7-80.0); RED CELL DISTRIBUTION WIDTH 15.1 % (11.7-14.4)
[2025-02-19 06:13] LABS: EST GLOMERULAR FILTRATION RATE 8.0 ML/MIN (>=60)
[2025-02-19 07:50] LABS: HEPATITIS B CORE AB TOTAL Negative; HEPATITIS B SURFACE AB QUANT <3.5
[2025-02-19 07:51] LABS: HEPATITIS B SURFACE AG (P) Negative
[2025-02-19] MEDS: EPOETIN ALFA-EPBX 10,000 UNIT/ML VIAL SC SCH (12:17)
[2025-02-19] MEDS ORDERED: HEPARIN SOD (PORCINE) 1000 UNIT/ML SDV IV PRN (14:15)
[2025-02-19 16:24] LABS: BODY FLUID APPEARANCE SL.CLOUDY; BODY FLUID COLOR YELLOW; BODY FLUID TYPE PLEURAL; WBC,BODY FLUID 340 cells/uL
[2025-02-19 20:05] LABS: LYMPHOCYTES,BODY FLUID 27 %; MONO/MACROPHG,BODY FLUID 52 %; NEUTROPHILS,BODY FLUID 7 %; OTHER CELLS,BODY FLUID 14 %; TOTAL CELLS COUNTED (DIFF) 100
[2025-02-20] VITALS (10 sets, daily range): BP systolic 129–164; BP diastolic 52–58; PULSE 60–71; RESP 16–20; TEMP 97.4–98.8; O2SAT 97–100
[2025-02-20 07:30] LABS: BASOPHILS % 0.5 % (0.0-1.0); EOSINOPHILS % 1.4 % (0.0-6.0); LYMPHOCYTES % 19.7 % (18.0-39.1); MONOCYTES % 8.9 % (4.4-11.3); NEUTROPHILS % 69.0 % (38.7-80.0); RED CELL DISTRIBUTION WIDTH 15.2 % (11.7-14.4)
[2025-02-20 08:10] LABS: EST GLOMERULAR FILTRATION RATE 14.0 ML/MIN (>=60); LACTATE DEHYDROGENASE 119.0 IU/L (125-220)
[2025-02-20] MEDS ORDERED: PHENAZOPYRIDINE HCL 100 MG TAB PO PRN (11:15)
[2025-02-20 15:47] LABS: TOTAL PROTEIN,BODY FLUID 2.8 g/dL
[2025-02-20] MEDS ORDERED: TOLTERODINE TARTRATE 2 MG TAB PO SCH (17:00)
[2025-02-20] MEDS: TOLTERODINE TARTRATE 2 MG TAB PO SCH (17:13)
[2025-02-20] MEDS: ACETAMINOPHEN 325 MG TAB PO PRN (17:18)
[2025-02-21] VITALS (11 sets, daily range): BP systolic 142–162; BP diastolic 54–76; PULSE 58–63; RESP 16–18; TEMP 97.4–99.1; O2SAT 94–100
[2025-02-21 07:14] LABS: BASOPHILS % 0.6 % (0.0-1.0); EOSINOPHILS % 2.3 % (0.0-6.0); LYMPHOCYTES % 19.7 % (18.0-39.1); MONOCYTES % 8.8 % (4.4-11.3); NEUTROPHILS % 68.1 % (38.7-80.0); RED CELL DISTRIBUTION WIDTH 15.3 % (11.7-14.4)
[2025-02-21 07:53] LABS: EST GLOMERULAR FILTRATION RATE 11.0 ML/MIN (>=60)
[2025-02-21] MEDS ORDERED: LIDOCAINE HCL 1% 30ML-PF VIAL ONE (11:12)
[2025-02-21] MEDS ORDERED: SODIUM CHLORIDE 0.9% 250ML 250 ML ONE ×2 (11:12→11:29)
[2025-02-21] MEDS ORDERED: HEPARIN SOD (PORCINE) 1000 UNIT/ML SDV ONE (11:29)
[2025-02-21] MEDS ORDERED: MIDAZOLAM HCL 2 MG/2 ML VIAL ONE (11:29)
[2025-02-21] MEDS ORDERED: FENTANYL CITRATE/PF 100MCG/2 ML INJ ONE (11:29)
[2025-02-22 00:40] VITALS: PULSE 60; RESP 18; O2SAT 100
[2025-02-22 03:21] VITALS: BP 160/55; PULSE 66; RESP 18; TEMP 98.1; O2SAT 100
[2025-02-22 06:51] LABS: BASOPHILS % 0.7 % (0.0-1.0); EOSINOPHILS % 3.1 % (0.0-6.0); LYMPHOCYTES % 20.0 % (18.0-39.1); MONOCYTES % 8.7 % (4.4-11.3); NEUTROPHILS % 67.2 % (38.7-80.0); RED CELL DISTRIBUTION WIDTH 15.5 % (11.7-14.4)
[2025-02-22 06:52] VITALS: PULSE 72; RESP 20; O2SAT 98
[2025-02-22 07:39] LABS: EST GLOMERULAR FILTRATION RATE 16.0 ML/MIN (>=60)
[2025-02-22 09:00] VITALS: BP 160/55; PULSE 72; RESP 20; TEMP 98.1; O2SAT 98
[2025-02-22 13:00] VITALS: BP 166/58; PULSE 65; RESP 20; TEMP 98.1; O2SAT 100
== END 2025-02-22 13:00 | disposition home health service (06) | DRG 673 ==
LOC: ER 23:04 → ERHOLD 02-15 01:56 → MED/SURG3 02-15 03:07
PROVIDERS: ADMIT Internal Medicine; ATTEND Internal Medicine
PROC: 02H633Z Insertion of Infusion Device into Right Atrium, Percutaneous Approach (ICD-10-PCS; 2025-02-16)
PROC: B5181ZA Fluoroscopy of Superior Vena Cava using Low Osmolar Contrast, Guidance (ICD-10-PCS; 2025-02-16)
PROC: B548ZZA Ultrasonography of Superior Vena Cava, Guidance (ICD-10-PCS; 2025-02-16)
PROC: 5A1D70Z Performance of Urinary Filtration, Intermittent, Less than 6 Hours Per Day (ICD-10-PCS; 2025-02-16)
PROC: 30233N1 Transfusion of Nonautologous Red Blood Cells into Peripheral Vein, Percutaneous Approach (ICD-10-PCS; 2025-02-17)
PROC: 5A1D70Z Performance of Urinary Filtration, Intermittent, Less than 6 Hours Per Day (ICD-10-PCS; 2025-02-17)
PROC: 0W993ZZ Drainage of Right Pleural Cavity, Percutaneous Approach (ICD-10-PCS; 2025-02-19)
PROC: 5A1D70Z Performance of Urinary Filtration, Intermittent, Less than 6 Hours Per Day (ICD-10-PCS; 2025-02-19)
PROC: 0JH63XZ Insertion of Tunneled Vascular Access Device into Chest Subcutaneous Tissue and Fascia, Percutaneous Approach (ICD-10-PCS; principal; 2025-02-21)
PROC: 02H633Z Insertion of Infusion Device into Right Atrium, Percutaneous Approach (ICD-10-PCS; 2025-02-21)
PROC: B5181ZA Fluoroscopy of Superior Vena Cava using Low Osmolar Contrast, Guidance (ICD-10-PCS; 2025-02-21)
PROC: B548ZZA Ultrasonography of Superior Vena Cava, Guidance (ICD-10-PCS; 2025-02-21)
PROC: 5A1D70Z Performance of Urinary Filtration, Intermittent, Less than 6 Hours Per Day (ICD-10-PCS; 2025-02-21)
DX: N17.9 Acute kidney failure, unspecified (principal); E43 Unspecified severe protein-calorie malnutrition; J15.69 Pneumonia due to other Gram-negative bacteria; I50.33 Acute on chronic diastolic (congestive) heart failure; J96.21 Acute and chronic respiratory failure with hypoxia; I13.2 Hypertensive heart and chronic kidney disease with heart failure and with stage 5 chronic kidney disease, or end stage renal disease; Z16.24 Resistance to multiple antibiotics; B37.49 Other urogenital candidiasis; J91.8 Pleural effusion in other conditions classified elsewhere; N39.0 Urinary tract infection, site not specified; B96.20 Unspecified Escherichia coli [E. coli] as the cause of diseases classified elsewhere; E11.22 Type 2 diabetes mellitus with diabetic chronic kidney disease; N18.6 End stage renal disease; I25.10 Atherosclerotic heart disease of native coronary artery without angina pectoris; I48.0 Paroxysmal atrial fibrillation; Z79.01 Long term (current) use of anticoagulants; Z96.0 Presence of urogenital implants; E87.5 Hyperkalemia; E11.51 Type 2 diabetes mellitus with diabetic peripheral angiopathy without gangrene; E11.42 Type 2 diabetes mellitus with diabetic polyneuropathy; G89.29 Other chronic pain; E78.00 Pure hypercholesterolemia, unspecified; F41.8 Other specified anxiety disorders; N31.9 Neuromuscular dysfunction of bladder, unspecified; M51.369 Other intervertebral disc degeneration, lumbar region without mention of lumbar back pain or lower extremity pain; M17.11 Unilateral primary osteoarthritis, right knee; R53.81 Other malaise; Z68.29 Body mass index [BMI] 29.0-29.9, adult; D50.9 Iron deficiency anemia, unspecified; D63.1 Anemia in chronic kidney disease; F32.9 Major depressive disorder, single episode, unspecified; Z95.0 Presence of cardiac pacemaker; Z99.81 Dependence on supplemental oxygen; Z79.899 Other long term (current) drug therapy
CPT/HCPCS: 32555; 36415; 36556; 36558; 71045; 74470; 76705; 76937; 77001; 80048; 80053; 82550; 82948; 83615; 83690; 83880; 84157; 84478; 84484; 85025; 85610; 86704; 86706; 86850; 86900; 86920; 87070; 87205; 87340; 89051; 90962; 93005; 94799; 99152; 99284; C1752; C1769; C1892; J0690; J1171; J1644; J1938; J1956; J2003; J2150; J2185; J2250; J2270; J2405; J2470; J2916; J7030; J7050; P9016

== ENCOUNTER 2025-03-09 11:20 | Inpatient (IN) | payer MEDICARE ==
[2025-03-09] VITALS (23 sets, daily range): BP systolic 79–126; BP diastolic 40–64; PULSE 57–94; RESP 7–21; TEMP 96.7–97.9; O2SAT 97–100
[~2025-03-09] VITALS: Ht 188 cm; Wt 86.2 kg
[2025-03-09 12:15] LABS: ABG HCO3 31 mmol/L (22-26); ABG PCO2 69 mmHg (35-45); ABG PH 7.27 (7.35-7.45); ABG PO2 94 mmHg (80-105); ABG TCO2 33
[2025-03-09 12:16] LABS: ABG BASE EXCESS 4.0 mmol/L (-2 - 3); ABG OXYGEN SATURATION 96.0 % (95-98)
[2025-03-09 12:22] LABS: BASOPHILS % 0.4 % (0.0-1.0); EOSINOPHILS % 0.5 % (0.0-6.0); LYMPHOCYTES % 6.3 % (18.0-39.1); MONOCYTES % 6.2 % (4.4-11.3); NEUTROPHILS % 86.1 % (38.7-80.0); RED CELL DISTRIBUTION WIDTH 15.9 % (11.7-14.4)
[2025-03-09 12:27] LABS: LEUKOCYTE ESTERASE ,URINE LARGE (NEGATIVE); OPIATES SCREEN,URINE POSITIVE (NEGATIVE); PROTEIN,URINE DIPSTICK >=300 (NEGATIVE)
[2025-03-09 12:28] LABS: AMPHETAMINES SCREEN,URINE NEGATIVE (NEGATIVE); CANNABINOIDS SCREEN,URINE NEGATIVE (NEGATIVE); COCAINE SCREEN,URINE NEGATIVE (NEGATIVE); METHADONE SCREEN, URINE NEGATIVE (NEGATIVE); URINE UROBILINOGEN 0.2 mg/dL (0.2 - 1)
[2025-03-09 12:42] LABS: EST GLOMERULAR FILTRATION RATE 12.0 ML/MIN (>=60)
[2025-03-09 12:43] LABS: EPITHELIAL CELLS,URINE MODERATE /LPF; WBC,URINE (MAN) >50 /HPF (0-5); YEAST,URINE MODERATE
[2025-03-09 12:51] LABS: INR 0.94
[2025-03-09] MEDS: Morphine 2mg Syringe 2 MG/ML SYR IV STA (13:16)
[2025-03-09] MEDS: ONDANSETRON HCL INJ 2MG/ML 2ML 2 MG/ML VIAL IV STA (13:17)
[2025-03-09] MEDS: Doxycycline IV 100 MG in SODIUM CHLORIDE 0.9% 100 ML IV ONE (13:54)
[2025-03-09] MEDS ORDERED: ONDANSETRON HCL INJ 2MG/ML 2ML 2 MG/ML VIAL IV PRN ×2 (15:45→16:00)
[2025-03-09] MEDS ORDERED: ALBUMIN 5% 250ML 250 ML ONE (15:58)
[2025-03-09 16:18] LABS: ABG BASE EXCESS 4.0 mmol/L (-2 - 3); ABG HCO3 31 mmol/L (22-26); ABG PCO2 74 mmHg (35-45); ABG PH 7.23 (7.35-7.45); ABG PO2 116 mmHg (80-105); ABG TCO2 34
[2025-03-09 16:19] LABS: ABG OXYGEN SATURATION 97.0 % (95-98)
[2025-03-09] MEDS ORDERED: ALBUTEROL/IPRATROPIUM 3 ML NEB NEB PRN (16:30)
[2025-03-09] MEDS: ALBUMIN 5% 0.05 GM/ML BTL IV ONE (16:55)
[2025-03-10] VITALS (70 sets, daily range): BP systolic 97–178; BP diastolic 37–161; PULSE 58–92; RESP 6–23; TEMP 97–99.5; O2SAT 93–100
[2025-03-10 06:50] LABS: BASOPHILS % 0.3 % (0.0-1.0); EOSINOPHILS % 0.8 % (0.0-6.0); LYMPHOCYTES % 13.9 % (18.0-39.1); MONOCYTES % 7.0 % (4.4-11.3); NEUTROPHILS % 77.5 % (38.7-80.0); RED CELL DISTRIBUTION WIDTH 15.8 % (11.7-14.4)
[2025-03-10 07:01] LABS: CHOL/HDL RATIO 3.1 (3.9-4.7); EST GLOMERULAR FILTRATION RATE 11.0 ML/MIN (>=60); LDL CHOLESTEROL 43.0 MG/DL (60-130)
[2025-03-10 08:29] LABS: ABG PCO2 80 mmHg (35-45); ABG PH 7.21 (7.35-7.45)
[2025-03-10 08:30] LABS: ABG BASE EXCESS 4.0 mmol/L (-2 - 3); ABG HCO3 32 mmol/L (22-26); ABG OXYGEN SATURATION 94.0 % (95-98); ABG PO2 88 mmHg (80-105); ABG TCO2 34
[2025-03-10] MEDS: ATORVASTATIN 20 MG TAB PO SCH (09:00)
[2025-03-10] MEDS ORDERED: SODIUM CHLORIDE 0.9% 1000ML 2,000 ML IV PRN (09:30)
[2025-03-10] MEDS ORDERED: ALBUMIN 25% 12.5GM 0.25 GM/ML BTL IV PRN (09:30)
[2025-03-10] MEDS: ACETAMINOPHEN 1000 MG/100 ML IV STA ×2 (14:08→21:23)
[2025-03-11] VITALS (41 sets, daily range): BP systolic 122–173; BP diastolic 50–64; PULSE 54–63; RESP 8–20; TEMP 97.8–98.8; O2SAT 85–100
[2025-03-11 05:15] LABS: BASOPHILS % 0.3 % (0.0-1.0); EOSINOPHILS % 0.5 % (0.0-6.0); LYMPHOCYTES % 17.0 % (18.0-39.1); MONOCYTES % 7.7 % (4.4-11.3); NEUTROPHILS % 74.0 % (38.7-80.0); RED CELL DISTRIBUTION WIDTH 15.9 % (11.7-14.4)
[2025-03-11 05:42] LABS: EST GLOMERULAR FILTRATION RATE 14.0 ML/MIN (>=60)
[2025-03-11 08:16] LABS: ABG PH 7.26 (7.35-7.45)
[2025-03-11] MEDS: KETOROLAC TROMETHAMINE 30 MG/ML VIAL IV STA (08:16)
[2025-03-11 08:17] LABS: ABG BASE EXCESS 3.0 mmol/L (-2 - 3); ABG HCO3 30 mmol/L (22-26); ABG OXYGEN SATURATION 97.0 % (95-98); ABG PCO2 67 mmHg (35-45); ABG PO2 113 mmHg (80-105); ABG TCO2 32
[2025-03-11] MEDS: Morphine 2mg Syringe 2 MG/ML SYR IV PRN (21:22)
[2025-03-12] VITALS (37 sets, daily range): BP systolic 124–172; BP diastolic 50–68; PULSE 59–68; RESP 8–26; TEMP 97.3–99.6; O2SAT 99–100
[2025-03-12 05:11] LABS: BASOPHILS % 0.3 % (0.0-1.0); EOSINOPHILS % 0.7 % (0.0-6.0); LYMPHOCYTES % 17.1 % (18.0-39.1); MONOCYTES % 7.3 % (4.4-11.3); NEUTROPHILS % 74.2 % (38.7-80.0); RED CELL DISTRIBUTION WIDTH 16.5 % (11.7-14.4)
[2025-03-12 05:37] LABS: EST GLOMERULAR FILTRATION RATE 11.0 ML/MIN (>=60)
[2025-03-12] MEDS: HEPARIN SOD (PORCINE) 1000 UNIT/ML SDV IV PRN (21:45)
[2025-03-13] VITALS (26 sets, daily range): BP systolic 126–173; BP diastolic 46–77; PULSE 57–78; RESP 10–25; TEMP 98–100; O2SAT 96–100
[2025-03-13 05:24] LABS: BASOPHILS % 0.3 % (0.0-1.0); EOSINOPHILS % 1.6 % (0.0-6.0); LYMPHOCYTES % 18.7 % (18.0-39.1); MONOCYTES % 9.4 % (4.4-11.3); NEUTROPHILS % 69.5 % (38.7-80.0); RED CELL DISTRIBUTION WIDTH 16.2 % (11.7-14.4)
[2025-03-13 05:32] LABS: HEPATITIS B CORE AB TOTAL Negative; HEPATITIS B SURFACE AB QUANT <3.5; HEPATITIS B SURFACE AG (P) Negative
[2025-03-13 05:58] LABS: EST GLOMERULAR FILTRATION RATE 17.0 ML/MIN (>=60)
[2025-03-14] VITALS (17 sets, daily range): BP systolic 140–174; BP diastolic 49–70; PULSE 59–65; RESP 11–19; TEMP 97.9–98.8; O2SAT 92–100
[2025-03-14 06:14] LABS: BASOPHILS % 0.4 % (0.0-1.0); EOSINOPHILS % 1.8 % (0.0-6.0); LYMPHOCYTES % 16.7 % (18.0-39.1); MONOCYTES % 8.5 % (4.4-11.3); NEUTROPHILS % 72.2 % (38.7-80.0); RED CELL DISTRIBUTION WIDTH 16.3 % (11.7-14.4)
[2025-03-14 06:43] LABS: EST GLOMERULAR FILTRATION RATE 14.0 ML/MIN (>=60)
[2025-03-14 12:11] LABS: BODY FLUID APPEARANCE CLEAR; BODY FLUID COLOR YELLOW; BODY FLUID TYPE PLEURAL
[2025-03-14 12:12] LABS: WBC,BODY FLUID 271 cells/uL
[2025-03-14 13:35] LABS: LYMPHOCYTES,BODY FLUID 89 %; MONO/MACROPHG,BODY FLUID 11 %; TOTAL CELLS COUNTED (DIFF) 100
[2025-03-14] MEDS ORDERED: MORPHINE SULFAT30 M2 PO (14:33)
[2025-03-14] MEDS ORDERED: ATIVAN1 MG PO (14:34)
[2025-03-14] MEDS ORDERED: FUROSEMIDE40 MG PO (14:36)
[2025-03-14 14:56] LABS: NEUTROPHILS,BODY FLUID 0 %
[2025-03-16 07:00] LABS: ABG BASE EXCESS 4.0 mmol/L (-2 - 3); ABG HCO3 31.0 mmol/L (22-26); ABG OXYGEN SATURATION 97.0 % (95-98); ABG PCO2 74.0 mmHg (35-45); ABG PH 7.23 (7.35-7.45); ABG PO2 116.0 mmHg (80-105); ABG TCO2 34.0
[2025-03-16 07:00] LABS: ABG BASE EXCESS 4.0 mmol/L (-2 - 3); ABG HCO3 31.0 mmol/L (22-26); ABG OXYGEN SATURATION 96.0 % (95-98); ABG PCO2 69.0 mmHg (35-45); ABG PH 7.27 (7.35-7.45); ABG PO2 94.0 mmHg (80-105); ABG TCO2 33.0
[2025-03-16 07:00] LABS: ABG BASE EXCESS 3.0 mmol/L (-2 - 3); ABG HCO3 30.0 mmol/L (22-26); ABG OXYGEN SATURATION 97.0 % (95-98); ABG PCO2 67.0 mmHg (35-45); ABG PH 7.26 (7.35-7.45); ABG PO2 113.0 mmHg (80-105); ABG TCO2 32.0
[2025-03-16 07:00] LABS: ABG BASE EXCESS 4.0 mmol/L (-2 - 3); ABG HCO3 32.0 mmol/L (22-26); ABG OXYGEN SATURATION 94.0 % (95-98); ABG PCO2 80.0 mmHg (35-45); ABG PH 7.21 (7.35-7.45); ABG PO2 88.0 mmHg (80-105); ABG TCO2 34.0
== END 2025-03-14 16:41 | disposition hospice, home (50) | DRG 180 ==
LOC: ER 11:29 → ERHOLD 13:04 → ICU 15:09
PROVIDERS: ADMIT Internal Medicine; ATTEND Internal Medicine
PROC: 4A033B1 Measurement of Arterial Pressure, Peripheral, Percutaneous Approach (ICD-10-PCS; principal; 2025-03-09)
PROC: 05HY33Z Insertion of Infusion Device into Upper Vein, Percutaneous Approach (ICD-10-PCS; 2025-03-09)
PROC: 0W993ZX Drainage of Right Pleural Cavity, Percutaneous Approach, Diagnostic (ICD-10-PCS; 2025-03-09)
PROC: 5A1D70Z Performance of Urinary Filtration, Intermittent, Less than 6 Hours Per Day (ICD-10-PCS; 2025-03-10)
PROC: 0W993ZX Drainage of Right Pleural Cavity, Percutaneous Approach, Diagnostic (ICD-10-PCS; 2025-03-14)
DX: C38.4 Malignant neoplasm of pleura (principal); E43 Unspecified severe protein-calorie malnutrition; J96.01 Acute respiratory failure with hypoxia; N18.6 End stage renal disease; I50.33 Acute on chronic diastolic (congestive) heart failure; J96.22 Acute and chronic respiratory failure with hypercapnia; J15.69 Pneumonia due to other Gram-negative bacteria; I13.2 Hypertensive heart and chronic kidney disease with heart failure and with stage 5 chronic kidney disease, or end stage renal disease; J91.0 Malignant pleural effusion; N39.0 Urinary tract infection, site not specified; Z16.24 Resistance to multiple antibiotics; E11.22 Type 2 diabetes mellitus with diabetic chronic kidney disease; Z99.2 Dependence on renal dialysis; G89.29 Other chronic pain; D63.1 Anemia in chronic kidney disease; I25.10 Atherosclerotic heart disease of native coronary artery without angina pectoris; E78.5 Hyperlipidemia, unspecified; N40.1 Benign prostatic hyperplasia with lower urinary tract symptoms; R33.9 Retention of urine, unspecified; M54.9 Dorsalgia, unspecified; N31.9 Neuromuscular dysfunction of bladder, unspecified; Z66 Do not resuscitate; I48.0 Paroxysmal atrial fibrillation; D50.9 Iron deficiency anemia, unspecified; R80.9 Proteinuria, unspecified; M17.11 Unilateral primary osteoarthritis, right knee; E11.51 Type 2 diabetes mellitus with diabetic peripheral angiopathy without gangrene; I87.2 Venous insufficiency (chronic) (peripheral); E21.3 Hyperparathyroidism, unspecified; E11.42 Type 2 diabetes mellitus with diabetic polyneuropathy; F41.9 Anxiety disorder, unspecified; F32.9 Major depressive disorder, single episode, unspecified; I95.9 Hypotension, unspecified; B96.20 Unspecified Escherichia coli [E. coli] as the cause of diseases classified elsewhere; R63.4 Abnormal weight loss; R62.7 Adult failure to thrive; Z96.652 Presence of left artificial knee joint; Z74.01 Bed confinement status; Z99.3 Dependence on wheelchair; Z79.891 Long term (current) use of opiate analgesic; Z87.440 Personal history of urinary (tract) infections; Z89.421 Acquired absence of other right toe(s); Z95.5 Presence of coronary angioplasty implant and graft; Z95.0 Presence of cardiac pacemaker; Z68.26 Body mass index [BMI] 26.0-26.9, adult
CPT/HCPCS: 32555; 36415; 36568; 36600; 70450; 71045; 74470; 80048; 80053; 80061; 80307; 81001; 82550; 82805; 83735; 83880; 84478; 84484; 85025; 85610; 85730; 86704; 86706; 87040; 87070; 87086; 87186; 87205; 87340; 88112; 88305; 89051; 93005; 94660; 94799; 99252; 99284; C1729; J0692; J1644; J1885; J2185; J2270; J2405; J7030; J7050